=== PATIENT | female | born 1960 | race Caucasian/White ===

== ENCOUNTER 2018-03-20 14:04 | Inpatient (IN) | payer BC ==
[2018-03-20] MEDS ORDERED: SODIUM CHLORIDE 0.9% 500 ML INFUS.BAG IV ONE ×2 (14:55→19:30)
--- NOTE | 2018-03-20 14:55 | PDOC ---
Rapid Medical Evaluation Chief Complaint: Pain Time Seen by Provider: 03/20/18 14:53 Medical Evaluation: Allergies Allergy/AdvReac Type Severity Reaction Status Date / Time No Known Allergies Allergy Unverified 10/09/12 11:51 Vital Signs Temp Pulse Resp BP Pulse Ox 99.4 F 58 L 20 1470/80 H 100 03/20/18 14:50 03/20/18 14:50 03/20/18 14:50 03/20/18 14:50 03/20/18 14:50 03/20/18 14:53 I have performed a brief in-person evaluation of this patient. The patient presents with a chief complaint of: not feeling well. Reports nausea and vomiting sent by pmd for further evaluation of norovirus Pertinent physical exam findings: NAD even and unlabored breathing mid generalize abdominal tenderness I have ordered the following: labs, iv fluids The patient will proceed to the ED for further evaluation.
[2018-03-20] MEDS ORDERED: ONDANSETRON 4 MG/2 ML VIAL IVPB ONE (14:56)
[2018-03-20 15:21] LABS: BASO % 0.4 % (0-2.0); EOS % 0.1 % (0-4.5); HEMATOCRIT 41.9 % (32.4-45.2); HEMOGLOBIN 14.6 GM/dL (10.7-15.3); LYMPH % 17.7 % (8-40); MCH 30.5 pg (25.7-33.7); MCHC 34.9 g/dl (32.0-36.0); MEAN CELL VOLUME 87.5 fl (80-96); MEAN PLT VOLUME 8.9 fl (7.5-11.1); MONO % 6.2 % (3.8-10.2); NEUT % 75.6 % (42.8-82.8); PLATELET COUNT 185 K/MM3 (134-434); RBC 4.78 M/mm3 (3.60-5.2); RDW 12.8 % (11.6-15.6); WHITE BLOOD COUNT 4.4 K/mm3 (4.0-10.0)
[2018-03-20 16:07] LABS: ALBUMIN 4.3 g/dl (3.4-5.0); ALK PHOS 76 U/L (45-117); ANION GAP 8 MMOL/L (8-16); BILIRUBIN,TOTAL 0.5 mg/dL (0.2-1); BLOOD UREA NITROGEN 18 mg/dL (7-18); CALCIUM 9.7 mg/dL (8.5-10.1); CHLORIDE 107 mmol/L (98-107); CO2 26 mmol/L (21-32); CREATININE 1.1 mg/dL (0.55-1.3); GLUCOSE,RANDOM 113 mg/dL (74-106); POTASSIUM 4.1 mmol/L (3.5-5.1); SGOT/AST 25 U/L (15-37); SGPT/ALT 28 U/L (13-61); SODIUM 142 mmol/L (136-145); TOT PROT 7.8 g/dl (6.4-8.2)
[2018-03-20] MEDS ORDERED: ONDANSETRON 4 MG/2 ML VIAL ONE (17:25)
[2018-03-20 17:51] LABS: MAGNESIUM 2.2 mg/dL (1.8-2.4)
--- NOTE | 2018-03-20 18:14 | PDOC ---
Attending Attestation - HPI HPI: 03/20/18 19:13 The patient is a 58 year old female, with no significant past medical history, who presents to the emergency department with, fever, nausea, vomiting, and diffuse abdominal pain. Allergies: NKDA - Physicial Exam PE: 03/20/18 19:28 +GENERAL: Uncomfortably, ill appearing. No apparent distress. HEENT: Normocephalic, atraumatic. PERRL, EOM intact. CARDIOVASCULAR: Tachycardic. Normal S1, S2. Regular rhythm. PULMONARY: Clear to auscultation bilaterally. +ABDOMEN: LLQ and L groin tender to palpation. No CVA tenderness. Soft, non-distended. Positive bowel sounds. EXTREMITIES: Normal ROM in all four extremities. No gross deformities. SKIN: Warm, dry. No rash NEUROLOGICAL: No focal neurological deficits. <Francis Vega - Last Filed: 03/20/18 19:28> - Resident Resident Name: Albina Casiano - ED Attending Attestation I have performed the following: I have examined & evaluated the patient, The case was reviewed & discussed with the resident, I agree w/resident's findings & plan, Exceptions are as noted - Medical Decision Making 03/20/18 19:35 58-year-old female whose been sick since last evening. The left lower quadrant pain radiating down to her groin PSH hysterectomy her main c/o LLq abd pain,chills oral kcpc=[id number] scan pending 03/21/18 00:23 ct scan reveals SBO and pt admitted to med/surg Dr Rivera surgical consult <Susana Skelton - Last Filed: 03/21/18 00:27> Attestations - Attestations 03/20/18 19:14 Documentation prepared by Francis Vega, acting as medical social worker for Susana Skelton MD. <Francis Vega - Last Filed: 03/20/18 19:28>
--- NOTE | 2018-03-20 18:23 | PDOC ---
History of Present Illness - General Chief Complaint: Pain Stated Complaint: DEHYDRATION/ VOMITIG/ WEAKNESS Time Seen by Provider: 03/20/18 14:53 - History of Present Illness Initial Comments: Dania Irwin is a 58yo woman with no relevant medical history who presents from her PMD's office with vomiting and abdominal pain. She reports that the abdominal pain started around 9pm last night in the LLQ v left groin. She had no associated urinary symptoms, constipation, diarrhea, or fever/chills at that time. She did have one episode of vomiting last night. She was seen at the [place] [facility] overnight due to worsening pain, up to 11/23, and was told she had "non-infectious gastroenteritis." She states that she had labs and an ultrasound , and she was told to follow up with her PMD. She was at her primary's office this afternoon and had some witnessed vomiting, so she was sent to the ED for evaluation. Ms Irwin states that the pain has spread to her entire abdomen, worst in the LLQ vs left groin. She has had no appetite and a few episodes of vomiting, which she states is clear fluid, no bile or blood. She generally has a BM daily and did not have one today, but she has not eaten since yesterday. She has not noticed any urinary frequency, hematuria, or dysuria. She denies fevers, chills , upper abdominal or chest pain, no respiratory symptoms, sick contacts, recent travel, or change in diet. Past History - Past Medical History Allergies/Adverse Reactions: Allergies Allergy/AdvReac Type Severity Reaction Status Date / Time No Known Allergies Allergy Unverified 10/09/12 11:51 - Suicide/Smoking/Psychosocial Hx Smoking History: Never smoked Have you smoked in the past 12 months: No Information on smoking cessation initiated: No Hx Alcohol Use: No Drug/Substance Use Hx: No Review of Systems - Review of Systems Comments:: General: No fevers, no chills, no weight or appetite change, no malaise HEENT: No changes in vision, no changes in hearing, no congestion, no sore throat CV: No chest pain, no palpitations, no LE edema Pulm: No SOB, no cough, no wheezing GI: +nausea, vomiting, abd pain. No change in bowel habits. : No frequency, no urgency, no dysuria Musc: No back pain, no joint swelling, no recent injury Skin: No rash, no lesions, no erythema Endo: No excessive thirst, no heat/cold intolerance Heme: No unusual bruising or bleeding, no swollen glands Neuro: No syncope, no numbness/tingling, no focal weakness Vasc: No claudication Psych: No recent change in mood, no SI or HI *Physical Exam - Vital Signs Last Vital Signs Temp Pulse Resp BP Pulse Ox 99.4 F 58 L 20 1470/80 H 100 03/20/18 14:50 03/20/18 14:50 03/20/18 14:50 03/20/18 14:50 03/20/18 14:50 - Physical Exam Comments: General: Appears ill, uncomfortable but in no acute distress HEENT: PERRL, EOMI, MMM, voice normal, normal neck ROM, no LAD Cards: RRR, no murmur appreciated Pulm: Comfortable on room air, clear to auscultation bilaterally Abd: Soft, nondistended. Diffuse mild TTP, most in LLQ and suprapubic. No rigidity, no involuntary guarding. : No CVA tenderness Ext: Atraumatic. No LE edema. ROM intact. Strength 5/5 and equal bilaterally Vasc: Extremities WWP. Skin: Normal color, no rashes or lesions Neuro: A&Ox3, CN grossly intact, normal speech, motor/sensory grossly intact and symmetric Psych: Mood appropriate to situation Moderate Sedation - Procedure Monitoring Vital Signs: Procedure Monitoring Vital Signs Temperature 99.4 F 03/20/18 14:50 Pulse Rate 58 L 03/20/18 14:50 Respiratory Rate 20 03/20/18 14:50 Blood Pressure 1470/80 H 03/20/18 14:50 O2 Sat by Pulse Oximetry (%) 100 03/20/18 14:50 ED Treatment Course - LABORATORY CBC & Chemistry Diagram: 03/20/18 15:06 03/20/18 15:06 - ADDITIONAL ORDERS Additional order review: Laboratory Results 03/20/18 15:06 Sodium 142 Potassium 4.1 Chloride 107 Carbon Dioxide 26 Anion Gap 8 BUN 18 Creatinine 1.1 Creat Clearance w eGFR 51.38 Random Glucose 113 H Calcium 9.7 Magnesium 2.2 Total Bilirubin 0.5 AST 25 ALT 28 Alkaline Phosphatase 76 Total Protein 7.8 Albumin 4.3 03/20/18 15:06 RBC 4.78 MCV 87.5 MCHC 34.9 RDW 12.8 MPV 8.9 Neutrophils % 75.6 Lymphocytes % 17.7 Monocytes % 6.2 Eosinophils % 0.1 Basophils % 0.4 - Medications Given in the ED: ED Medications Discontinued Medications Generic Name Dose Route Start Last Admin Trade Name Mario PRN Reason Stop Dose Admin Ondansetron HCl 8 mg 03/20/18 14:56 03/20/18 17:54 Zofran Injection IVPB 03/20/18 14:57 8 mg ONCE ONE Administration Sodium Chloride 1,000 ml 03/20/18 14:55 03/20/18 17:53 Normal Saline - IV 03/20/18 14:56 1,000 ml ONCE ONE Administration Medical Decision Making - Medical Decision Making 03/20/18 18:04 Dania Irwin is a 58yo woman with no relevant medical history who presents with LLQ pain since last night that has worsened to become diffuse, 10/10 abdominal pain with associated nausea and vomiting. - Seen in E, CBC and chemistry completed. Reviewed. No abnormalities noted - Received 1L NS bolus and 8mg IV zofran with some improvement in symptoms - Ddx includes gastritis, diverticulitis, influenza. Less likely enteritis w/ no diarrhea. No h/o diverticulosis per pt on colonoscopy 2013. Consider kidney stone or UTI as LLQ pain is nearly at L groin 03/20/18 18:56 - Temperature rechecked by Dr Skelton. Was 100.1 orally, likely to have true fever if checked rectally - Influenza ordered, UA, urine culture - Acetaminophen for pain, elevated temp - Additional 1L NS bolus 03/20/18 22:45 - Labs notable for WBC 15 - Pt to CT. Noted to have contrast in the bladder already. Discussed with Pt, endorses previous CT while at [facility] overnight. Previously stated that she had an ultrasound during her previous ED visit. - Will need 3rd 1L IVF. Note ketones on UA suggesting dehydration - Need to obs to monitor kidney function as she has received 2 doses of IV contrast within 24hrs - Requesting more pain medication, but declines narcotics. Too early to give additional acetaminophen; no toradol given GFR 51 and IV contrast. 03/20/18 23:20 - Spoke to MARIE Mariscal, will admit to obs on Dr Burleson's service - EKG and CXR ordered for admission. 03/21/18 00:32 - CT read indicates SOB - Discussed additionally with pt. Had hysterectomy previously - Consult placed with surgery. No call overnight as this is unlikely to change of address clerk - MARIE Mariscal at bedside for admission Discussed with Dr Skelton. Albina Casiaon PGY1 *DC/Admit/Observation/Transfer Diagnosis at time of Disposition: LLQ abdominal pain, Vomiting, SBO (small bowel obstruction) - Discharge Dispostion Decision to Admit order: Yes - Referrals - Patient Instructions - Post Discharge Activity
[2018-03-20] MEDS ORDERED: ACETAMINOPHEN 1000 MG/100 ML VIAL (NON FORMULARY) IVPB ONE (18:27)
[2018-03-20] MEDS ORDERED: ACETAMINOPHEN INJECTION 100 ML IVPB ONE (18:33)
[2018-03-20 22:30] LABS: URINE APPEARANCE CLEAR; URINE BILIRUBIN NEGATIVE (<2.0 mg/dL); URINE COLOR YELLOW; URINE GLUCOSE (UA) NEGATIVE (NEGATIVE); URINE KETONE 1+ (NEGATIVE); URINE LEUK ESTERASE NEGATIVE (NEGATIVE); URINE NITRITE NEGATIVE (NEGATIVE); URINE PROTEIN 1+ (NEGATIVE); URINE UROBILINOGEN NEGATIVE mg/dL (0.2-1.0)
[2018-03-20 22:48] LABS: EPI CELLS RARE /HPF (FEW); URINE MUCUS MODERATE
[2018-03-20] MEDS ORDERED: SODIUM CHLORIDE 1,000 ML IV SCH (23:30)
--- NOTE | 2018-03-20 23:31 | HP ---
CHIEF COMPLAINT: Vomiting and Abdominal Pain PCP: Dr. Russel Lee HISTORY OF PRESENT ILLNESS: This is a 58 y/o woman no PMHx. Who presents to the ED with sharp LLQ pain and non bilious vomiting x 1 day. Patient was seen at [facility] last night for same had CT and US- enteritis, per patient- Dx Gastroenteritis. Patient reports that the abdominal pain increased. She reports her last BM Tuesday. Patient denies fever, chills, cough, SOB, CP, diarrhea, dysuria. ER course was notable for: (1) T Max 100.1 (2) UA- +1 Ketones, +1 Protein (3) CTAP- mild to moderate small bowel dilatation with obstruction. Small amount free fluid within the cul-de-sac Recent Travel: None PAST MEDICAL HISTORY: None PAST SURGICAL HISTORY: Hysterectomy Social History: Smoking: Denies Alcohol: Denies Drugs: Denies Family History: Hypertension and Stroke Allergies No Known Allergies Allergy (Unverified 10/09/12 11:51) HOME MEDICATIONS: REVIEW OF SYSTEMS CONSTITUTIONAL: Absent: fever, chills, diaphoresis, generalized weakness, malaise, loss of appetite, weight change HEENT: Absent: rhinorrhea, nasal congestion, throat pain, throat swelling, difficulty swallowing, mouth swelling, ear pain, eye pain, visual changes CARDIOVASCULAR: Absent: chest pain, syncope, palpitations, irregular heart rate, lightheadedness , peripheral edema RESPIRATORY: Absent: cough, shortness of breath, dyspnea with exertion, orthopnea, wheezing, stridor, hemoptysis GASTROINTESTINAL: abdominal pain, nausea, vomiting Absent: abdominal distension, diarrhea, constipation, melena, hematochezia GENITOURINARY: Absent: dysuria, frequency, urgency, hesitancy, hematuria, flank pain, genital pain MUSCULOSKELETAL: Absent: myalgia, arthralgia, joint swelling, back pain, neck pain SKIN: Absent: rash, itching, pallor HEMATOLOGIC/IMMUNOLOGIC: Absent: easy bleeding, easy bruising, lymphadenopathy, frequent infections ENDOCRINE: Absent: unexplained weight gain, unexplained weight loss, heat intolerance, cold intolerance NEUROLOGIC: Absent: headache, focal weakness or paresthesias, dizziness, unsteady gait, seizure, mental status changes, bladder or bowel incontinence PSYCHIATRIC: Absent: anxiety, depression, suicidal or homicidal ideation, hallucinations. PHYSICAL EXAMINATION Vital Signs - 24 hr 03/20/18 14:50 Temperature 99.4 F Pulse Rate 58 L Respiratory 20 Rate Blood Pressure 147/80 O2 Sat by Pulse 100 Oximetry (%) GENERAL: Awake, alert, and fully oriented, in moderate distress. HEAD: Normal with no signs of trauma. EYES: Pupils equal, round and reactive to light, extraocular movements intact, sclera anicteric, conjunctiva clear. No lid lag. EARS, NOSE, THROAT: Ears normal, nares patent, oropharynx clear without exudates. Dry mucous membranes. NECK: Normal range of motion, supple without lymphadenopathy, JVD, or masses. LUNGS: Breath sounds equal, clear to auscultation bilaterally. No wheezes, and no crackles. No accessory muscle use. HEART: Regular rate and rhythm, normal S1 and S2 without murmur, rub or gallop. ABDOMEN: Soft, distention, LLQ tenderness, hyperactive bowel sounds,+ guarding. No rebound, no masses. No hepatomegaly or splenomegaly. MUSCULOSKELETAL: Normal range of motion at all joints. No bony deformities or tenderness. No CVA tenderness. UPPER EXTREMITIES: 2+ pulses, warm, well-perfused. No cyanosis. No clubbing. No peripheral edema. LOWER EXTREMITIES: 2+ pulses, warm, well-perfused. No calf tenderness. No peripheral edema. NEUROLOGICAL: Cranial nerves II-XII intact. Normal speech. Gait not observed. PSYCHIATRIC: Cooperative. Good eye contact. Appropriate mood and affect. SKIN: Warm, dry, normal turgor, no rashes or lesions noted, normal capillary refill. Laboratory Results - last 24 hr 03/20/18 03/20/18 03/20/18 15:06 15:06 18:43 WBC 4.4 RBC 4.78 Hgb 14.6 Hct 41.9 MCV 87.5 MCH 30.5 MCHC 34.9 RDW 12.8 Plt Count 185 MPV 8.9 Absolute Neuts (auto) 3.3 Neutrophils % 75.6 Lymphocytes % 17.7 Monocytes % 6.2 Eosinophils % 0.1 Basophils % 0.4 Nucleated RBC % 0 Sodium 142 Potassium 4.1 Chloride 107 Carbon Dioxide 26 Anion Gap 8 BUN 18 Creatinine 1.1 Creat Clearance w eGFR 51.38 Random Glucose 113 H Calcium 9.7 Magnesium 2.2 Total Bilirubin 0.5 AST 25 ALT 28 Alkaline Phosphatase 76 Total Protein 7.8 Albumin 4.3 Urine Color Urine Appearance Urine pH Ur Specific [place] Urine Protein Urine Glucose (UA) Urine Ketones Urine Blood Urine Nitrite Urine Bilirubin Urine Urobilinogen Ur Leukocyte Esterase Urine WBC (Auto) Urine RBC (Auto) Ur Epithelial Cells Urine Mucus Influenza A (Rapid) Negative Influenza B (Rapid) Negative 03/20/18 19:08 WBC RBC Hgb Hct MCV MCH MCHC RDW Plt Count MPV Absolute Neuts (auto) Neutrophils % Lymphocytes % Monocytes % Eosinophils % Basophils % Nucleated RBC % Sodium Potassium Chloride Carbon Dioxide Anion Gap BUN Creatinine Creat Clearance w eGFR Random Glucose Calcium Magnesium Total Bilirubin AST ALT Alkaline Phosphatase Total Protein Albumin Urine Color Yellow Urine Appearance Clear Urine pH 5.0 Ur Specific [place] 1.041 H Urine Protein 1+ H Urine Glucose (UA) Negative Urine Ketones 1+ H Urine Blood Negative Urine Nitrite Negative Urine Bilirubin Negative Urine Urobilinogen Negative Ur Leukocyte Esterase Negative Urine WBC (Auto) 1 Urine RBC (Auto) 3 Ur Epithelial Cells Rare Urine Mucus Moderate Influenza A (Rapid) Influenza B (Rapid) ASSESSMENT/PLAN: This is a 58 y/o woman no PMHx. Admitted for SBO for further evaluation of their emergent condition. Plan: See Problem List FEN NS@125ml/hr Replete lytes prn NPO DVT ppx OOB SCDs Lovenox SQ Code Status: Full Code Dispo: Requires Inpatient Care Problem List - Problem (1) SBO (small bowel obstruction) Assessment/Plan: CTAP report- mild to moderate small bowel dilatation consistent with obstruction Appreciate Surgical consult NPO NGT IVF Morphine Sulfate prn Monitor CBC, BMP Monitor vitals Code(s): K56.609 - UNSP INTESTNL OBST, UNSP TO PARTIAL VERSUS COMPLETE OBST (2) Abdominal pain Assessment/Plan: See above Code(s): R10.9 - UNSPECIFIED ABDOMINAL PAIN (3) Vomiting Assessment/Plan: Likely secondary to SBO Zofran prn IVF Monitor lytes Code(s): R11.10 - VOMITING, UNSPECIFIED Visit type - Emergency Visit Emergency Visit: Yes ED Registration Date: 03/20/18 Care time: The patient presented to the Emergency Department on the above date and was hospitalized for further evaluation of their emergent condition. - New Patient This patient is new to me today: Yes Date on this admission: 03/20/18 - Critical Care Critical Care patient: No
[2018-03-21] MEDS ORDERED: ONDANSETRON 4 MG/2 ML VIAL ONE (00:01)
[2018-03-21] MEDS: ONDANSETRON 4 MG/2 ML VIAL IVPUSH PRN ×3 (00:14→16:09)
[2018-03-21] MEDS ORDERED: SODIUM CHLORIDE 0.9% 500 ML INFUS.BAG IV ONE (00:35)
[2018-03-21] MEDS ORDERED: morphine CARPU-JECT 4 MG/1 ML DISP.SYRIN IVPUSH PRN (00:43)
[2018-03-21] MEDS ORDERED: MORPHINE SULFATE 10 MG/1 ML *VIAL ONE (01:48)
[2018-03-21] MEDS: DEXTROSE 5%-0.45% SALINE 1,000 ML IV SCH ×2 (01:55→03:42)
[2018-03-21 08:19] LABS: BASO % 0.2 % (0-2.0); HEMATOCRIT 36.4 % (32.4-45.2); HEMOGLOBIN 12.9 GM/dL (10.7-15.3); LYMPH % 15.7 % (8-40); MCH 31.1 pg (25.7-33.7); MCHC 35.4 g/dl (32.0-36.0); MEAN CELL VOLUME 87.8 fl (80-96); MEAN PLT VOLUME 9.3 fl (7.5-11.1); MONO % 8.8 % (3.8-10.2); NEUT % 75.3 % (42.8-82.8); PLATELET COUNT 140 K/MM3 (134-434); RBC 4.15 M/mm3 (3.60-5.2); WHITE BLOOD COUNT 6.1 K/mm3 (4.0-10.0)
[2018-03-21 08:52] LABS: ANION GAP 7 MMOL/L (8-16); BLOOD UREA NITROGEN 16 mg/dL (7-18); CALCIUM 8.7 mg/dL (8.5-10.1); CHLORIDE 110 mmol/L (98-107); CO2 24 mmol/L (21-32); GLUCOSE,RANDOM 135 mg/dL (74-106); POTASSIUM 3.6 mmol/L (3.5-5.1); SODIUM 141 mmol/L (136-145)
--- NOTE | 2018-03-21 10:48 | CONSULT ---
- Consultation REQUESTING PROVIDER: CONSULT REQUEST: We have been asked to surgically evaluate this patient for abdominal pain r/o SBO. PCP:Nory Burleson HISTORY OF PRESENT ILLNESS: 58yo woman with no relevant medical history who presents from her PMD's office with clear non-bilious vomiting and abdominal pain x1 day. She reports that the abdominal pain started around 9pm on Tuesday night in the LLQ and left groin. She had no associated urinary symptoms, constipation, diarrhea, or fever/chills at that time. She was seen at the [place] ED Tuesday night overnight due to worsening pain, up to 11/23 where the patient reports she had a work up including labs and an abdominal CT was diagnosed with "non-infectious gastroenteritis." She was discharged home Tuesday morning then later presented to her PCP's office for follow up and was later sent to the ED. She denies fevers, chills, upper abdominal or chest pain, no respiratory symptoms, sick contacts, recent travel, or change in diet. Past History denies Allergies/Adverse Reactions: Home Medications Medication Instructions Recorded NK [No Known Home Medication] 03/21/18 Allergies Allergy/AdvReac Type Severity Reaction Status Date / Time No Known Allergies Allergy Unverified 10/09/12 11:51 - Suicide/Smoking/Psychosocial Hx Smoking History: Never smoked Have you smoked in the past 12 months: No Information on smoking cessation initiated: No Hx Alcohol Use: No Drug/Substance Use Hx: No - Review of Systems Comments:: General: No fevers, no chills, no weight, no malaise HEENT: No changes in vision, no changes in hearing, no congestion, no sore throat CV: No chest pain, no palpitations, no LE edema Pulm: No SOB, no cough, no wheezing GI: +nausea, vomiting, +abd pain. No change in bowel habits. : No frequency, no urgency, no dysuria Musc: No back pain, no joint swelling, no recent injury Skin: No rash, no lesions, no erythema Endo: No excessive thirst, no heat/cold intolerance Heme: No unusual bruising or bleeding, no swollen glands Neuro: No syncope, no numbness/tingling, no focal weakness Vasc: No claudication Psych: No recent change in mood, no SI or HI - Physical Exam Comments: General: A&Ox3, NAD HEENT: voice normal, normal neck ROM, no LAD Pulm: unlabored resp on room air, Abd: Soft, nondistended. Focal ttp at LLQ and suprapubic area. No rigidity, no involuntary guarding. Ext: Atraumatic. No LE edema. ROM intact. Strength 5/5 and equal bilaterally Vasc: Extremities WWP. Skin: Normal color, no rashes or lesions Neuro: A&Ox3, CN grossly intact, normal speech, motor/sensory grossly intact and symmetric Psych: Mood appropriate to situation Vital Signs Temperature 98.7 F 03/21/18 03:51 Pulse Rate 53 L 03/21/18 03:51 Respiratory Rate 18 03/21/18 03:51 Blood Pressure 133/59 L 03/21/18 03:51 O2 Sat by Pulse Oximetry (%) 98 03/21/18 03:30 Lab Results WBC 6.1 K/mm3 (4.0-10.0) 03/21/18 07:00 RBC 4.15 M/mm3 (3.60-5.2) 03/21/18 07:00 Hgb 12.9 GM/dL (10.7-15.3) 03/21/18 07:00 Hct 36.4 % (32.4-45.2) 03/21/18 07:00 MCV 87.8 fl (80-96) 03/21/18 07:00 MCHC 35.4 g/dl (32.0-36.0) 03/21/18 07:00 RDW 13.0 % (11.6-15.6) 03/21/18 07:00 Plt Count 140 K/MM3 (134-434) D 03/21/18 07:00 Sodium 141 mmol/L (136-145) 03/21/18 07:00 Potassium 3.6 mmol/L (3.5-5.1) 03/21/18 07:00 Chloride 110 mmol/L (98-107) H 03/21/18 07:00 Carbon Dioxide 24 mmol/L (21-32) 03/21/18 07:00 Anion Gap 7 MMOL/L (8-16) L 03/21/18 07:00 BUN 16 mg/dL (7-18) 03/21/18 07:00 Creatinine 1.0 mg/dL (0.55-1.3) 03/21/18 07:00 Random Glucose 135 mg/dL (74-106) H 03/21/18 07:00 Calcium 8.7 mg/dL (8.5-10.1) 03/21/18 07:00 Abd/Chest CT with contrast revealed mild to moderate bowel dilation consistent with obstruction upright Abd x-ray: areas of dilated small bowel Problem List - Problems (1) Abdominal pain Assessment/Plan: 58yo with abdominal pain and vomiting question of SBO 1) Abdominal CT with oral contrast 2) NPO 3) trend labs 4) pain control 5) NGT PRN if lots of vomiting 6) surgery to follow Evaluation and plan discussed with Dr Rivera Code(s): R10.9 - UNSPECIFIED ABDOMINAL PAIN
--- NOTE | 2018-03-21 12:41 | PN ---
Progress Note (short form) - Note Progress Note: Events noted Feels bloated no nausea Vomited this morning no further vomiting Vital Signs - 24 hr 03/20/18 03/21/18 03/21/18 14:50 01:59 03:30 Temperature 99.4 F 98.9 F 98.7 F Pulse Rate 58 L 53 L Pulse Rate [ 59 L Left Radial] Respiratory 20 18 18 Rate Blood Pressure 147/80 133/59 L Blood Pressure 138/79 [Left Arm] O2 Sat by Pulse 100 98 98 Oximetry (%) 03/21/18 03/21/18 03:51 09:00 Temperature 98.7 F 98.0 F Pulse Rate 53 L 59 L Pulse Rate [ Left Radial] Respiratory 18 20 Rate Blood Pressure 133/59 L 143/82 Blood Pressure [Left Arm] O2 Sat by Pulse 100 Oximetry (%) Current Medications Generic Name Dose Route Start Last Admin Trade Name Freq PRN Reason Stop Dose Admin Dextrose/Sodium Chloride 1,000 mls @ 100 mls/hr 03/21/18 00:45 03/21/18 03:42 D5-1/2ns - IV 100 mls/hr ASDIR GWEN Administration Morphine Sulfate 4 mg 03/21/18 02:41 Morphine Sulfate IVPUSH Q6H PRN PAIN LEVEL 7 - 10 Ondansetron HCl 4 mg 03/20/18 23:31 03/21/18 05:55 Zofran Injection IVPUSH 4 mg Q6H PRN Administration NAUSEA AND/OR VOMITING Laboratory Results - last 24 hr 03/20/18 03/20/18 03/20/18 15:06 15:06 18:43 WBC 4.4 RBC 4.78 Hgb 14.6 Hct 41.9 MCV 87.5 MCH 30.5 MCHC 34.9 RDW 12.8 Plt Count 185 MPV 8.9 Absolute Neuts (auto) 3.3 Neutrophils % 75.6 Lymphocytes % 17.7 Monocytes % 6.2 Eosinophils % 0.1 Basophils % 0.4 Nucleated RBC % 0 Sodium 142 Potassium 4.1 Chloride 107 Carbon Dioxide 26 Anion Gap 8 BUN 18 Creatinine 1.1 Creat Clearance w eGFR 51.38 Random Glucose 113 H Calcium 9.7 Magnesium 2.2 Total Bilirubin 0.5 AST 25 ALT 28 Alkaline Phosphatase 76 Total Protein 7.8 Albumin 4.3 Urine Color Urine Appearance Urine pH Ur Specific [place] Urine Protein Urine Glucose (UA) Urine Ketones Urine Blood Urine Nitrite Urine Bilirubin Urine Urobilinogen Ur Leukocyte Esterase Urine WBC (Auto) Urine RBC (Auto) Ur Epithelial Cells Urine Mucus Influenza A (Rapid) Negative Influenza B (Rapid) Negative 03/20/18 03/21/18 03/21/18 19:08 07:00 07:00 WBC 6.1 RBC 4.15 Hgb 12.9 Hct 36.4 MCV 87.8 MCH 31.1 MCHC 35.4 RDW 13.0 Plt Count 140 D MPV 9.3 Absolute Neuts (auto) 4.6 Neutrophils % 75.3 Lymphocytes % 15.7 Monocytes % 8.8 Eosinophils % 0.0 D Basophils % 0.2 Nucleated RBC % 0 Sodium 141 Potassium 3.6 Chloride 110 H Carbon Dioxide 24 Anion Gap 7 L BUN 16 Creatinine 1.0 Creat Clearance w eGFR 57.35 Random Glucose 135 H Calcium 8.7 Magnesium Total Bilirubin AST ALT Alkaline Phosphatase Total Protein Albumin Urine Color Yellow Urine Appearance Clear Urine pH 5.0 Ur Specific [place] 1.041 H Urine Protein 1+ H Urine Glucose (UA) Negative Urine Ketones 1+ H Urine Blood Negative Urine Nitrite Negative Urine Bilirubin Negative Urine Urobilinogen Negative Ur Leukocyte Esterase Negative Urine WBC (Auto) 1 Urine RBC (Auto) 3 Ur Epithelial Cells Rare Urine Mucus Moderate Influenza A (Rapid) Influenza B (Rapid) S1S2 RRR Lungs clear Oral - moist Abd-- soft, distended, BS hyperactive, tender LLQ No edema PLAN NPO xray noted still SBO no vomiting pain control as needed surgical eval appreciated iv fluids DVT prophylaxis Problem List - Problems (1) Abdominal pain Code(s): R10.9 - UNSPECIFIED ABDOMINAL PAIN (2) LLQ abdominal pain Code(s): R10.32 - LEFT LOWER QUADRANT PAIN (3) SBO (small bowel obstruction) Code(s): K56.609 - UNSP INTESTNL OBST, UNSP TO PARTIAL VERSUS COMPLETE OBST
--- NOTE | 2018-03-21 15:06 | EKG ---
Test Reason : Blood Pressure : / mmHG Vent. Rate : 051 BPM Atrial Rate : 051 BPM P-R Int : 184 ms QRS Dur : 078 ms QT Int : 444 ms P-R-T Axes : 058 083 061 degrees QTc Int : 409 ms SINUS BRADYCARDIA WITH MARKED SINUS ARRHYTHMIA SEPTAL INFARCT , AGE UNDETERMINED T WAVE ABNORMALITY, CONSIDER ANTERIOR ISCHEMIA ABNORMAL ECG NO PREVIOUS ECGS AVAILABLE Confirmed by Mateo Malik MD ([id number]) on 03/21/2018 3:05:25 PM Referred By: Confirmed By:Mateo Malik MD
[2018-03-21] MEDS: morphine SULFATE 4 MG/ML VIAL IVPUSH PRN ×2 (16:08→22:21)
[2018-03-22] MEDS: DEXTROSE 5%-0.45% SALINE 1,000 ML IV SCH ×2 (05:22→16:05)
[2018-03-22] MEDS: morphine SULFATE 4 MG/ML VIAL IVPUSH PRN ×2 (05:22→21:43)
--- NOTE | 2018-03-22 09:18 | PN ---
Progress Note (short form) - Note Progress Note: Attending Surgeon She had nausea and vomiting overnight; no flatus/no BM VSS AF abdo-soft; not markedly tympanitic; non tender CTa/p yesterday reviwed yesterday IMP: partial ? worsening ? sbo PLAN: Obstructive series today and would recommend NGT if she continues to vomit and/or pending results of todays imaging; continue IVF/NPO; d/w the patient who understands. Adrian Rivera MD FACS
[2018-03-22] MEDS: PANTOPRAZOLE SODIUM 40 MG VIAL IVPUSH SCH (10:33)
[2018-03-22] MEDS: ENOXAPARIN NA (PORCINE) 40 MG/0.4 ML DISP.SYRIN SQ SCH (10:33)
--- NOTE | 2018-03-22 12:16 | PN ---
Progress Note (short form) - Note Progress Note: no vomiting no nausea Vital Signs - 24 hr 03/21/18 03/21/18 03/21/18 15:21 18:57 21:00 Temperature 98.8 F 99.4 F Pulse Rate 62 60 Respiratory 18 20 20 Rate Blood Pressure 149/74 150/71 O2 Sat by Pulse 98 Oximetry (%) 03/21/18 03/22/18 03/22/18 22:00 06:00 10:25 Temperature 98.8 F 98.5 F Pulse Rate 58 L 60 54 L Respiratory 20 20 17 Rate Blood Pressure 148/83 129/82 129/72 O2 Sat by Pulse Oximetry (%) Current Medications Generic Name Dose Route Start Last Admin Trade Name Freq PRN Reason Stop Dose Admin Acetaminophen 1,000 mg 03/22/18 12:06 Ofirmev Injection - IVPB Q6H PRN PAIN 1-3 Enoxaparin Sodium 40 mg 03/22/18 10:00 03/22/18 10:33 Lovenox - SQ Not Given DAILY GWEN Dextrose/Sodium Chloride 1,000 mls @ 100 mls/hr 03/21/18 00:45 03/22/18 05:22 D5-1/2ns - IV 100 mls/hr ASDIR GWEN Administration Morphine Sulfate 4 mg 03/21/18 02:41 03/22/18 05:22 Morphine Sulfate IVPUSH 4 mg Q6H PRN Administration PAIN LEVEL 7 - 10 Ondansetron HCl 4 mg 03/20/18 23:31 03/21/18 16:09 Zofran Injection IVPUSH 4 mg Q6H PRN Administration NAUSEA AND/OR VOMITING Pantoprazole Sodium 40 mg 03/22/18 10:00 03/22/18 10:33 Protonix Iv IVPUSH 40 mg DAILY GWEN Administration S1 S2 RRR Lungs clear Oral - moist Abd-- soft, distended, BS hyperactive, decreased tender LLQ No edema PLAN NPO xray noted still SBO no vomiting pain control as needed surgical eval appreciated iv fluids DVT prophylaxis tylenol iv as needed as morphine is making her too drowsy GI eval Problem List - Problems (1) Abdominal pain Code(s): R10.9 - UNSPECIFIED ABDOMINAL PAIN (2) LLQ abdominal pain Code(s): R10.32 - LEFT LOWER QUADRANT PAIN (3) SBO (small bowel obstruction) Code(s): K56.609 - UNSP INTESTNL OBST, UNSP TO PARTIAL VERSUS COMPLETE OBST
[2018-03-22] MEDS: ACETAMINOPHEN 1000 MG/100 ML VIAL (NON FORMULARY) IVPB PRN (16:05)
--- NOTE | 2018-03-22 17:09 | PROC ---
Procedure Note Procedure: Abdo xrays reviewed with attending, unchanged from CT scan done yesterday. Pt w / vomiting this AM. Continued abdominal distention. NGTube placed this afternoon. Approx 500ml greenish drainage upon placement of tube. Air auscultated over the epigastric, +gurgling sounds with air instillation. ABdo xray ordered for AM. procedure done with Chief PA, David Velazquez
[2018-03-22] MEDS ORDERED: TETRACAINE/BENZOCAINE/BUTAMBEN 20 GM SPR TP SCH (20:00)
--- NOTE | 2018-03-22 23:02 | CONS ---
DATE OF CONSULTATION: 03/22/2018 HISTORY OF PRESENT ILLNESS: Patient is a 58-year-old female with no past medical history who was seen at [facility] the night prior to admission to [facility] [place]; at the time, had a CT and ultrasound, which revealed enteritis. Patient was discharged with the diagnosis of gastroenteritis. She now presents to the hospital with complaints of left lower quadrant abdominal pain and vomiting. Her abdominal pain increased during the course of the day. Her last bowel movement was over the weekend. She denies any hematemesis, melena, hematochezia, previous episodes of obstructive process or similar symptoms. She has not had a recent endoscopic evaluation. PAST MEDICAL AND SURGICAL HISTORY: As listed in the HPI with the addition of a hysterectomy. SOCIAL HISTORY: Does not smoke, drink, or use drugs. FAMILY HISTORY: Significant for cardiac disease and hypertension and stroke. ALLERGIES: No known drug allergies. REVIEW OF SYSTEMS: Negative except for pertinent positives in the HPI. PHYSICAL EXAMINATION: Vital Signs: Temperature 99, pulse 54, blood pressure 124/72, pulse oximetry 98% on room air. General: No acute distress. HEENT: Anicteric sclerae. NG tube in place. Heart: S1, S2. Regular rate and rhythm. Lungs: Bilaterally clear to auscultation. Abdomen: Tender and distended with high pitched bowel sounds. Extremities: No edema. LABORATORY: White blood cell count is 6, hemoglobin 12, hematocrit 36, MCV 87, platelet count 140. Sodium 141, potassium 3.6, BUN 16, creatinine 1, glucose 135. Urine: 1+ protein and 1+ ketones. Influenza is negative. She had a CT scan of the abdomen and pelvis, which revealed worsening SBO since March 20, 2018, development of trace amount of ascites. She had an abdominal x-ray done today, which revealed persistent small bowel obstruction. IMPRESSION: Small bowel obstruction most likely secondary to adhesions. RECOMMENDATION: NG tube, intermittent suction. IV fluids. Monitor CBC and electrolytes daily. Cetacaine spray for comfort. I would recommend Surgery evaluation. Monitor abdominal examination. DVT prophylaxis. DO ELENA MAIER/[id number]
[2018-03-23] MEDS: DEXTROSE 5%-0.45% SALINE 1,000 ML IV SCH (01:59)
[2018-03-23] MEDS: ONDANSETRON 4 MG/2 ML VIAL IVPUSH PRN (04:38)
[2018-03-23] MEDS ORDERED: TETRACAINE/BENZOCAINE/BUTAMBEN 20 GM SPR TP PRN (08:14)
[2018-03-23] MEDS ORDERED: PHENOL 177 ML SPRAY BOTTLE MM PRN (08:17)
--- NOTE | 2018-03-23 08:39 | PN ---
Progress Note (short form) - Note Progress Note: Attempted to see pt this AM (approx 830). Pt in restroom washing up for 20+ mins with NGT disconnected. Upon returning to bed for exam, pt attempted to speak and vomited approx 200ml greenish drainage. NGT reconnected with >200ml suctioned immediately. Will follow up later today d/w attending Dr Rivera
[2018-03-23 09:48] LABS: ALBUMIN 3.8 g/dl (3.4-5.0); ALK PHOS 67 U/L (45-117); ANION GAP 9 MMOL/L (8-16); BILIRUBIN,TOTAL 0.7 mg/dL (0.2-1); BLOOD UREA NITROGEN 22 mg/dL (7-18); CALCIUM 9.6 mg/dL (8.5-10.1); CHLORIDE 102 mmol/L (98-107); CO2 28 mmol/L (21-32); CREATININE 1.1 mg/dL (0.55-1.3); GLUCOSE,RANDOM 146 mg/dL (74-106); MAGNESIUM 2.3 mg/dL (1.8-2.4); POTASSIUM 3.2 mmol/L (3.5-5.1); SGOT/AST 14 U/L (15-37); SGPT/ALT 22 U/L (13-61); SODIUM 139 mmol/L (136-145); TOT PROT 7.5 g/dl (6.4-8.2)
[2018-03-23] MEDS ORDERED: TETRACAINE/BENZOCAINE/BUTAMBEN 20 GM SPR TP SCH (10:00)
[2018-03-23] MEDS: ENOXAPARIN NA (PORCINE) 40 MG/0.4 ML DISP.SYRIN SQ SCH (10:22)
[2018-03-23] MEDS: PANTOPRAZOLE SODIUM 40 MG VIAL IVPUSH SCH (10:22)
[2018-03-23] MEDS: PHENOL 177 ML SPRAY BOTTLE MM PRN ×4 (10:22→23:29)
--- NOTE | 2018-03-23 11:16 | PN ---
GI Progress Note Subjective: 500cc from NGT drained from this shift so far and canister changed overnight Abdominal pain improved - Objective Vital Signs: Vital Signs Temperature 99.2 F 03/23/18 10:00 Pulse Rate 57 L 03/23/18 10:00 Respiratory Rate 20 03/23/18 10:00 Blood Pressure 139/75 03/23/18 10:00 O2 Sat by Pulse Oximetry (%) 98 03/22/18 21:00 Constitutional: Calm Eyes: No: Sclera Icterus Cardiovascular: Yes: Bradycardia Respiratory: Yes: CTA Bilaterally Gastrointestinal Inspection: Yes: Other (Protuberant) ...Auscultate: Yes: Hypoactive Bowel Sounds ...Palpate: Yes: Soft. No: Tenderness ...Percussion: No: Tympanitic Edema: No (No LE edema) Neurological: Yes: Alert Labs: CBC, BMP 03/21/18 07:00 03/23/18 07:50 - ....Imaging X-ray: Image Reviewed (poor film. overpenetrated AXR) Problem List - Problems (1) SBO (small bowel obstruction) Assessment/Plan: Surgery following Poor quality AXR today Continue NGT decompression IV hydration, supportive measures Code(s): K56.609 - UNSP INTESTNL OBST, UNSP TO PARTIAL VERSUS COMPLETE OBST
--- NOTE | 2018-03-23 12:05 | PN ---
Progress Note (short form) - Note Progress Note: has NGT placed bloating is less Vital Signs - 24 hr 03/22/18 03/22/18 03/22/18 14:00 21:00 22:00 Temperature 99.3 F Pulse Rate 54 L 60 Respiratory 18 20 20 Rate Blood Pressure 124/72 150/92 O2 Sat by Pulse 98 Oximetry (%) 03/23/18 03/23/18 06:00 10:00 Temperature 99.1 F 99.2 F Pulse Rate 60 57 L Respiratory 20 20 Rate Blood Pressure 136/79 139/75 O2 Sat by Pulse Oximetry (%) Current Medications Generic Name Dose Route Start Last Admin Trade Name Freq PRN Reason Stop Dose Admin Acetaminophen 1,000 mg 03/22/18 12:06 03/22/18 16:05 Ofirmev Injection - IVPB 1,000 mg Q6H PRN Administration PAIN 1-3 Enoxaparin Sodium 40 mg 03/22/18 10:00 03/23/18 10:22 Lovenox - SQ Not Given DAILY GWEN Potassium Chloride 10 meq in 100 mls @ 100 mls/hr 03/23/18 12:00 Potassium Chloride 10 Meq Premix Ivpb - IVPB 03/23/18 13:59 Q60M GWEN Potassium Chloride 20 meq/ 1,000 mls @ 100 mls/hr 03/23/18 11:35 Dextrose/Sodium Chloride IVPB ASDIR GWEN Morphine Sulfate 4 mg 03/21/18 02:41 03/22/18 21:43 Morphine Sulfate IVPUSH 4 mg Q6H PRN Administration PAIN LEVEL 7 - 10 Ondansetron HCl 4 mg 03/20/18 23:31 03/23/18 04:38 Zofran Injection IVPUSH 4 mg Q6H PRN Administration NAUSEA AND/OR VOMITING Pantoprazole Sodium 40 mg 03/22/18 10:00 03/23/18 10:22 Protonix Iv IVPUSH 40 mg DAILY GWEN Administration Phenol/Menthol 1 spray 03/23/18 08:19 03/23/18 10:22 Chloraseptic - MM 1 spray Q4H PRN Administration SORE THROAT Laboratory Results - last 24 hr 03/23/18 07:50 Sodium 139 Potassium 3.2 L Chloride 102 Carbon Dioxide 28 Anion Gap 9 BUN 22 H Creatinine 1.1 Creat Clearance w eGFR 51.38 Random Glucose 146 H Calcium 9.6 Magnesium 2.3 Total Bilirubin 0.7 AST 14 L ALT 22 Alkaline Phosphatase 67 Total Protein 7.5 Albumin 3.8 TSH 0.65 S1 S2 RRR Lungs clear Oral - moist Abd-- soft, less distended, BS not present , decreased tender LLQ No edema PLAN NPO iv fluids replace potassium still SBO no vomiting pain control as needed GI eval appreciated DVT prophylaxis tylenol iv as needed as morphine is making her too drowsy Problem List - Problems (1) Abdominal pain Code(s): R10.9 - UNSPECIFIED ABDOMINAL PAIN (2) LLQ abdominal pain Code(s): R10.32 - LEFT LOWER QUADRANT PAIN (3) SBO (small bowel obstruction) Code(s): K56.609 - UNSP INTESTNL OBST, UNSP TO PARTIAL VERSUS COMPLETE OBST
[2018-03-23 12:33] VITALS: BMI 24.2
[2018-03-23] MEDS: KCL 10 MEQ IVPB 10 MEQ/100 ML INFUS.BAG IVPB SCH ×2 (12:37→14:02)
[2018-03-23] MEDS: DEXTROSE 5%-0.45% SALINE 990 ML with POTASSIUM CHLORIDE 20 MEQ IVPB SCH (14:03)
[2018-03-23] MEDS: ACETAMINOPHEN 1000 MG/100 ML VIAL (NON FORMULARY) IVPB PRN (20:09)
[2018-03-24] MEDS: DEXTROSE 5%-0.45% SALINE 990 ML with POTASSIUM CHLORIDE 20 MEQ IVPB SCH
[2018-03-24] MEDS ORDERED: SODIUM CHLORIDE 500 ML IV STA (04:06)
--- NOTE | 2018-03-24 04:12 | HOSP ---
Subjective - Review of Symptoms Events since last encounter: Hospitalist Encounter Notified by the RN that the patient requested to speak to the Hospitalist regarding her concerns for dehydration Subjective: Arrived to bedside, patient is awake, alert and oriented. Patient reports only voided 100cc overnight and that her urine was very concentrated. Patient reports dry lips and throat and feelings of generalized weakness. See PE Plan NS bolus 500ml x1 Strict INOs Continue with current regimen General: Yes: Malaise HEENT: Yes: Sore Throat Neurological: Yes: Weakness Physical Examination Vital Signs: Vital Signs Temperature 98.3 F 03/24/18 02:00 Pulse Rate 54 L 03/24/18 02:00 Respiratory Rate 20 03/24/18 02:00 Blood Pressure 126/73 03/24/18 02:00 O2 Sat by Pulse Oximetry (%) 98 03/23/18 21:00 Constitutional: Yes: No Distress, Calm Eyes: Yes: Conjunctiva Clear, PERRL, Other (dry mucousa) HENT: Yes: Atraumatic, Normocephalic, Other (NGT to R- nare) Neck: Yes: WNL, Supple, Trachea Midline Cardiovascular: Yes: WNL, Regular Rate and Rhythm, S1, S2 Respiratory: Yes: WNL, Regular, CTA Bilaterally Gastrointestinal: Yes: Soft, Distention, Hypoactive Bowel Sounds, Tenderness Edema: No Peripheral Pulses WNL: Yes Neurological: Yes: WNL, Alert, Oriented Psychiatric: Yes: WNL, Alert, Oriented Labs: CBC, BMP 03/21/18 07:00 03/23/18 07:50 Intake & Output 03/21/18 03/22/18 03/23/18 03/24/18 23:59 23:59 23:59 23:59 Intake Total 1350 2400 2500 Output Total 700 2400 1000 Balance 1350 1700 100 -1000 Weight 76.748 kg 76.657 kg Last Vital Signs Temp Pulse Resp BP Pulse Ox 98.3 F 54 L 20 126/73 98 03/24/18 02:00 03/24/18 02:00 03/24/18 02:00 03/24/18 02:00 03/23/18 21:00
[2018-03-24] MEDS: PHENOL 177 ML SPRAY BOTTLE MM PRN ×3 (04:13→20:30)
[2018-03-24 08:02] LABS: ALBUMIN 3.6 g/dl (3.4-5.0); ALK PHOS 65 U/L (45-117); ANION GAP 7 MMOL/L (8-16); BILIRUBIN,TOTAL 0.7 mg/dL (0.2-1); BLOOD UREA NITROGEN 24 mg/dL (7-18); CALCIUM 9.2 mg/dL (8.5-10.1); CHLORIDE 101 mmol/L (98-107); CO2 33 mmol/L (21-32); GLUCOSE,RANDOM 126 mg/dL (74-106); SGOT/AST 19 U/L (15-37); SGPT/ALT 24 U/L (13-61); SODIUM 140 mmol/L (136-145); TOT PROT 7.3 g/dl (6.4-8.2)
--- NOTE | 2018-03-24 09:22 | PN ---
Progress Note (short form) - Note Progress Note: Pt seen and examined on AM rounds. States she does not feel well. Reports feeling "weak, hungry and very dehydrated". Voided 1 x overnight, dark urine in bedside commode. Was oob ambulating in the hallway yesterday. Denies cp/sob, n/v /d. Has not passed flatus. Vital Signs Temp 98.9 F 03/24/18 06:00 Pulse 60 03/24/18 06:00 Resp 20 03/24/18 06:00 BP 132/74 03/24/18 06:00 Pulse Ox 98 03/23/18 21:00 Intake & Output 03/23/18 03/24/18 03/24/18 23:59 11:59 23:59 Intake Total 1300 1600 Output Total 1800 1000 Balance -500 600 Weight 169 lb Intake: IV 1100 1600 D5-1/2Ns - 990 ml @ 100 1100 mls/hr IVPB ASDIR GWEN with KCl - 20 Meq Rx#: [id number] Normal Saline - 500 ml @ 500 500 mls/hr IV ASDIR STA Rx#:[id number] saline lock 1100 IVPB 200 Oral 0 Output: Gastric Drainage 1500 1000 Emesis 300 Other: Voiding Method Bedside Commode Bedside Commode # Unmeasured Voids Void 2 1 Bowel Movement No No Height 5 ft 10 in Body Mass Index (BMI) 24.2 CBC, BMP 03/21/18 07:00 03/24/18 06:40 Gen: awake, alert, nad Resp: unlabored on RA Abdo: soft, slightly distended, no ttp, + bowel sounds. No rebound or guarding. NGT in place and to suction, approx 500ml bilious output in reservoir. A/P: 58 y/o F w/ no PMHx, admitted 2/ with sharp LLQ pain and non bilious vomiting x 1 day, found to have SBO. NGT placed 03/22. Output overnight 1000ml no flatus Am xray reviewed with attending, sbo, ?air in colon -Keep NPO in place and to suction, primary team to increase IVF -OOB ambulating every few hours -Serial abdo exams -Monitor VS and I&O -Tentatively on schedule for Tuesday for possible ex-lap, lysis of adhesions, small bowel resection -Will follow d/w attending Dr Rivera
--- NOTE | 2018-03-24 10:41 | PN ---
GI Progress Note Subjective: Patient seen by hospitalist last night: patient given IV bolus Ms. Irwin complains of feeling weak, her throat hurts and that she has urinated once in the last 12 hours Per her nurse, the suction canister was changed around 2-3 AM She denies abdominal pain, but describes "sensitivity" in the mid abdomen AXR yesterday was read as dilated bowel loops No BM or flatus as of yet - Objective Vital Signs: Vital Signs Temperature 98.9 F 03/24/18 06:00 Pulse Rate 60 03/24/18 06:00 Respiratory Rate 20 03/24/18 06:00 Blood Pressure 132/74 03/24/18 06:00 O2 Sat by Pulse Oximetry (%) 98 03/23/18 21:00 Constitutional: Calm Eyes: No: Sclera Icterus Cardiovascular: Yes: Bradycardia, Murmur (2/6 systolic murmur at the LSB) Respiratory: Yes: CTA Bilaterally Gastrointestinal Inspection: Yes: Other (Protuberant) ...Auscultate: Yes: Hypoactive Bowel Sounds Edema: No (No LE edema) Neurological: Yes: Alert Labs: CBC, BMP 03/21/18 07:00 03/24/18 06:40 Problem List - Problems (1) SBO (small bowel obstruction) Assessment/Plan: Continued output from NGT D/W Dr. Burleson: Will increase IV fluids Correct lytes Continue NGT suction Surgical follow-up Code(s): K56.609 - UNSP INTESTNL OBST, UNSP TO PARTIAL VERSUS COMPLETE OBST
[2018-03-24] MEDS: KCL 10 MEQ IVPB 10 MEQ/100 ML INFUS.BAG IVPB SCH ×3 (10:51→16:50)
[2018-03-24] MEDS: PANTOPRAZOLE SODIUM 40 MG VIAL IVPUSH SCH (10:52)
[2018-03-24] MEDS: ENOXAPARIN NA (PORCINE) 40 MG/0.4 ML DISP.SYRIN SQ SCH (10:52)
--- NOTE | 2018-03-24 10:58 | PN ---
Progress Note (short form) - Note Progress Note: pt seen/examined chart reviewed pt awake/ comfortable. All f/u noted Discussed with GI also. Vital Signs Temp 98.9 F 03/24/18 06:00 Pulse 60 03/24/18 06:00 Resp 20 03/24/18 06:00 BP 132/74 03/24/18 06:00 Pulse Ox 98 03/23/18 21:00 Intake & Output 03/23/18 03/23/18 03/24/18 11:59 23:59 11:59 Intake Total 1200 1300 1600 Output Total 600 1800 1000 Balance 600 -500 600 Weight 169 lb Intake: IV 1200 1100 1600 D5-1/2Ns - 1,000 ml @ 100 1200 mls/hr IV ASDIR GWEN Rx#: [id number] D5-1/2Ns - 990 ml @ 100 1100 mls/hr IVPB ASDIR GWEN with KCl - 20 Meq Rx#: [id number] Normal Saline - 500 ml @ 500 500 mls/hr IV ASDIR STA Rx#:[id number] saline lock 1100 IVPB 200 Oral 0 Output: Gastric Drainage 600 1500 1000 Emesis 300 Other: Voiding Method Toilet Bedside Commode # Unmeasured Voids Void 2 2 1 Bowel Movement No No Height 5 ft 10 in Body Mass Index (BMI) 24.2 Active Medications Acetaminophen (Ofirmev Injection -) 1,000 mg IVPB Q6H PRN PRN Reason: PAIN 1-3 Last Admin: 03/23/18 20:09 Dose: 1,000 mg Enoxaparin Sodium (Lovenox -) 40 mg SQ DAILY GWEN Last Admin: 03/24/18 10:52 Dose: Not Given Potassium Chloride (Potassium Chloride 10 Meq Premix Ivpb -) 10 meq in 100 mls @ 100 mls/hr IVPB Q60M GWEN Stop: 03/24/18 11:59 Last Admin: 03/24/18 10:51 Dose: 100 mls/hr Dextrose/Sodium Chloride (Dextrose 5%-Normal Saline+20 Meq Kcl -) 20 meq in 1, 000 mls @ 150 mls/hr IV ASDIR GWEN Ondansetron HCl (Zofran Injection) 4 mg IVPUSH Q6H PRN PRN Reason: NAUSEA AND/OR VOMITING Last Admin: 03/23/18 04:38 Dose: 4 mg Pantoprazole Sodium (Protonix Iv) 40 mg IVPUSH DAILY GWEN Last Admin: 03/24/18 10:52 Dose: 40 mg Phenol/Menthol (Chloraseptic -) 1 spray MM Q4H PRN PRN Reason: SORE THROAT Last Admin: 03/24/18 04:13 Dose: 1 spray CBC, BMP 03/21/18 07:00 03/24/18 06:40 Physical Exam. S1 S2 RRR Lungs clear Oral - moist Abd-- soft, quiet. No edema. ngt + PLAN NPO/ ice chips iv fluids-- Increase rate replace potassium pain control as needed GI eval appreciated DVT prophylaxis surgery to follow monitor lytes serial fua ngt to suction oob - chair will follow discussed with nursing staff also
[2018-03-24] MEDS: D5-NS + 20 MEQ KCL - 20 MEQ/1,000 ML INFUS.BAG IV SCH ×2 (11:00→21:06)
[2018-03-24 12:00] LABS: MAGNESIUM 2.5 mg/dL (1.8-2.4)
--- NOTE | 2018-03-24 18:00 | PN ---
Progress Note (short form) - Note Progress Note: Attending Surgeon Seen in f/u No flatus/no BM abdo-soft; dull and non tympanitic and w/o signs of an acute surgical abdomen Xrays reviewed- ? air in colon IMP: SBO PLAN: Continue present tx; if not resolved by 03/26/18would advise exlap and related procedures; a/a/u by the patient. Adrian Rivera MD FACS
[2018-03-24] MEDS: ACETAMINOPHEN 1000 MG/100 ML VIAL (NON FORMULARY) IVPB PRN (20:28)
[2018-03-25] MEDS: ACETAMINOPHEN 1000 MG/100 ML VIAL (NON FORMULARY) IVPB PRN (03:08)
[2018-03-25] MEDS: D5-NS + 20 MEQ KCL - 20 MEQ/1,000 ML INFUS.BAG IV SCH ×3 (03:56→10:30)
[2018-03-25 09:36] LABS: BASO % 0.2 % (0-2.0); EOS % 0.8 % (0-4.5); HEMATOCRIT 39.9 % (32.4-45.2); HEMOGLOBIN 13.8 GM/dL (10.7-15.3); LYMPH % 17.1 % (8-40); MCH 29.9 pg (25.7-33.7); MCHC 34.5 g/dl (32.0-36.0); MEAN CELL VOLUME 86.9 fl (80-96); MONO % 8.7 % (3.8-10.2); NEUT % 73.2 % (42.8-82.8); PLATELET COUNT 161 K/MM3 (134-434); RBC 4.59 M/mm3 (3.60-5.2); RDW 12.7 % (11.6-15.6); WHITE BLOOD COUNT 5.4 K/mm3 (4.0-10.0)
[2018-03-25 10:14] LABS: ALBUMIN 3.6 g/dl (3.4-5.0); ALK PHOS 62 U/L (45-117); ANION GAP 6 MMOL/L (8-16); BILIRUBIN,TOTAL 0.5 mg/dL (0.2-1); BLOOD UREA NITROGEN 20 mg/dL (7-18); CALCIUM 9.5 mg/dL (8.5-10.1); CHLORIDE 106 mmol/L (98-107); CO2 30 mmol/L (21-32); CREATININE 0.9 mg/dL (0.55-1.3); GLUCOSE,RANDOM 141 mg/dL (74-106); POTASSIUM 3.1 mmol/L (3.5-5.1); SGOT/AST 10 U/L (15-37); SGPT/ALT 22 U/L (13-61); SODIUM 143 mmol/L (136-145); TOT PROT 7.1 g/dl (6.4-8.2)
[2018-03-25] MEDS: ENOXAPARIN NA (PORCINE) 40 MG/0.4 ML DISP.SYRIN SQ SCH (10:28)
[2018-03-25] MEDS: PANTOPRAZOLE SODIUM 40 MG VIAL IVPUSH SCH (10:46)
[2018-03-25] MEDS ORDERED: D5-NS + 20 MEQ KCL - 20 MEQ/1,000 ML INFUS.BAG IV SCH (12:16)
--- NOTE | 2018-03-25 12:20 | PN ---
Progress Note (short form) - Note Progress Note: Still with continuous NG suction She has pain in left lower quadrant no nausea a her throat hurts has low urine output Vital Signs - 24 hr 03/24/18 03/24/18 03/24/18 14:00 18:00 21:00 Temperature 99.1 F 99.0 F Pulse Rate 57 L 57 L Respiratory 20 20 20 Rate Blood Pressure 136/76 133/74 O2 Sat by Pulse 98 Oximetry (%) 03/25/18 02:00 Temperature 98.9 F Pulse Rate 54 L Respiratory 20 Rate Blood Pressure 121/51 L O2 Sat by Pulse Oximetry (%) Current Medications Generic Name Dose Route Start Last Admin Trade Name Freq PRN Reason Stop Dose Admin Benzocaine/Menthol 1 each 03/25/18 12:15 Cepacol Lozenge - MM PRN PRN SORE THROAT Enoxaparin Sodium 40 mg 03/22/18 10:00 03/25/18 10:28 Lovenox - SQ Not Given DAILY GWEN Potassium Chloride 10 meq in 100 mls @ 100 mls/hr 03/25/18 12:15 Potassium Chloride 10 Meq Premix Ivpb - IVPB 03/25/18 14:14 Q60M GWEN Dextrose/Sodium Chloride 20 meq in 1,000 mls @ 200 mls/hr 03/25/18 12:16 Dextrose 5%-Normal Saline+20 Meq Kcl - IV ASDIR GWEN Ondansetron HCl 4 mg 03/20/18 23:31 03/23/18 04:38 Zofran Injection IVPUSH 4 mg Q6H PRN Administration NAUSEA AND/OR VOMITING Pantoprazole Sodium 40 mg 03/22/18 10:00 03/25/18 10:46 Protonix Iv IVPUSH 40 mg DAILY GWEN Administration Phenol/Menthol 1 spray 03/23/18 08:19 03/24/18 20:30 Chloraseptic - MM 1 spray Q4H PRN Administration SORE THROAT Laboratory Results - last 24 hr 03/25/18 03/25/18 09:00 09:00 WBC 5.4 RBC 4.59 Hgb 13.8 Hct 39.9 MCV 86.9 MCH 29.9 MCHC 34.5 RDW 12.7 Plt Count 161 MPV 9.0 Absolute Neuts (auto) 4.0 Neutrophils % 73.2 Lymphocytes % 17.1 Monocytes % 8.7 Eosinophils % 0.8 D Basophils % 0.2 Nucleated RBC % 0 Sodium 143 Potassium 3.1 L Chloride 106 Carbon Dioxide 30 Anion Gap 6 L BUN 20 H Creatinine 0.9 Creat Clearance w eGFR > 60 Random Glucose 141 H Calcium 9.5 Total Bilirubin 0.5 AST 10 L ALT 22 Alkaline Phosphatase 62 Total Protein 7.1 Albumin 3.6 S1 S2 RRR Lungs clear Oral - moist Abd-- soft, distended, BS not present , decreased tender LLQ No edema PLAN NPO may have ice chips cepachol as needed iv fluids increase pt reassured-- has good renal function replace potassium may need to proceed with surgery as pt has not recovered bowel function at this time no flatus or bm yet Problem List - Problems (1) Abdominal pain Code(s): R10.9 - UNSPECIFIED ABDOMINAL PAIN (2) LLQ abdominal pain Code(s): R10.32 - LEFT LOWER QUADRANT PAIN (3) SBO (small bowel obstruction) Code(s): K56.609 - UNSP INTESTNL OBST, UNSP TO PARTIAL VERSUS COMPLETE OBST
[2018-03-25] MEDS: KCL 10 MEQ IVPB 10 MEQ/100 ML INFUS.BAG IVPB SCH ×2 (13:30→14:51)
[2018-03-25] MEDS: BENZOCAINE/MENTH/CETYLPYRD CL 1 EACH LOZENGE MM PRN (17:57)
[2018-03-25] MEDS ORDERED: ACETAMINOPHEN 325 MG TABLET (FP) PO PRN (20:28)
[2018-03-25] MEDS ORDERED: ACETAMINOPHEN 1000 MG/100 ML VIAL (NON FORMULARY) IVPB ONE (21:01)
[2018-03-25] MEDS: D5-1/2NS+20 MEQ KCL - 20 MEQ/1,000 ML INFUS.BAG IV SCH (22:13)
[2018-03-26 09:03] LABS: ANION GAP 3 MMOL/L (8-16); BLOOD UREA NITROGEN 17 mg/dL (7-18); CALCIUM 9.2 mg/dL (8.5-10.1); CHLORIDE 111 mmol/L (98-107); CO2 29 mmol/L (21-32); CREATININE 0.9 mg/dL (0.55-1.3); GLUCOSE,RANDOM 115 mg/dL (74-106); POTASSIUM 3.5 mmol/L (3.5-5.1); SODIUM 143 mmol/L (136-145)
--- NOTE | 2018-03-26 09:15 | PN ---
Progress Note (short form) - Note Progress Note: Still with continuous NG suction increased gastric contents in cannister she had margarito blood in NGT last night and afterwards was yellow- dark no abd pain very concerned about her surgery -- she will not undergo surgery tomorrow unless she speaks with surgeon concerned that she has poor urine output Vital Signs - 24 hr 03/25/18 03/25/18 03/25/18 14:00 18:00 21:00 Temperature 98.6 F 98.4 F Pulse Rate 53 L 54 L Respiratory 18 18 18 Rate Blood Pressure 144/80 141/76 O2 Sat by Pulse 98 Oximetry (%) 03/26/18 03/26/18 02:00 06:00 Temperature 98.7 F 98.4 F Pulse Rate 56 L 64 Respiratory 18 18 Rate Blood Pressure 138/74 134/70 O2 Sat by Pulse Oximetry (%) Current Medications Generic Name Dose Route Start Last Admin Trade Name Freq PRN Reason Stop Dose Admin Acetaminophen 650 mg 03/25/18 20:28 Tylenol - PO Q6H PRN PAIN LEVEL 4 - 6 Benzocaine/Menthol 1 each 03/25/18 12:15 03/25/18 17:57 Cepacol Lozenge - MM 1 each PRN PRN Administration SORE THROAT Enoxaparin Sodium 40 mg 03/22/18 10:00 03/26/18 09:27 Lovenox - SQ Not Given DAILY GWEN Potassium Chloride/Dextrose/Sod Cl 20 meq in 1,000 mls @ 100 mls/hr 03/25/18 22:00 03/25/18 22:13 D5-1/2ns+20 Meq Kcl - IV 100 mls/hr ASDIR GWEN Administration Ondansetron HCl 4 mg 03/20/18 23:31 03/23/18 04:38 Zofran Injection IVPUSH 4 mg Q6H PRN Administration NAUSEA AND/OR VOMITING Pantoprazole Sodium 40 mg 03/22/18 10:00 03/26/18 09:27 Protonix Iv IVPUSH 40 mg DAILY GWEN Administration Phenol/Menthol 1 spray 03/23/18 08:19 03/24/18 20:30 Chloraseptic - MM 1 spray Q4H PRN Administration SORE THROAT Laboratory Results - last 24 hr 03/25/18 03/26/18 09:00 07:30 Sodium 143 143 Potassium 3.1 L 3.5 Chloride 106 111 H Carbon Dioxide 30 29 Anion Gap 6 L 3 L BUN 20 H 17 Creatinine 0.9 0.9 Creat Clearance w eGFR > 60 > 60 Random Glucose 141 H 115 H Calcium 9.5 9.2 Total Bilirubin 0.5 AST 10 L ALT 22 Alkaline Phosphatase 62 Total Protein 7.1 Albumin 3.6 NGT+ S1 S2 RRR Lungs clear Oral - moist Abd-- soft, distended, BS not present , decreased tender LLQ No edema PLAN NPO may have ice chips cepachol as needed iv fluids increase- not in volume overload potassium , electrolytes good pt reassured-- has good renal function- explained that she has increased gastric contents suctioned which replaces the urine output spoke with surgeon who will be here to speak with pt-- I have requested that her family members be present at the time of discussion may need to proceed with surgery as pt has not recovered bowel function at this time no flatus or bm yet time spent 30 min Problem List - Problems (1) Abdominal pain Code(s): R10.9 - UNSPECIFIED ABDOMINAL PAIN (2) LLQ abdominal pain Code(s): R10.32 - LEFT LOWER QUADRANT PAIN (3) SBO (small bowel obstruction) Code(s): K56.609 - UNSP INTESTNL OBST, UNSP TO PARTIAL VERSUS COMPLETE OBST
[2018-03-26] MEDS: PANTOPRAZOLE SODIUM 40 MG VIAL IVPUSH SCH (09:27)
[2018-03-26] MEDS: ENOXAPARIN NA (PORCINE) 40 MG/0.4 ML DISP.SYRIN SQ SCH (09:27)
[2018-03-26] MEDS ORDERED: ACETAMINOPHEN 1000 MG/100 ML VIAL (NON FORMULARY) IVPB PRN (10:17)
[2018-03-26] MEDS ORDERED: PT OWN MED DRAWER 7, Y5N ONE (11:23)
[2018-03-26] MEDS: BENZOCAINE/MENTH/CETYLPYRD CL 1 EACH LOZENGE MM PRN ×2 (11:24→18:25)
--- NOTE | 2018-03-26 13:21 | PN ---
Progress Note (short form) - Note Progress Note: Attending Surgeon No new c/o; has not passed flatus nor had a BM and continues to have large amounts of GI drainage; she denies pain. VSS AF abdo-soft and non tender; minimally tympanitic AXR-although limited remains c/w SBO labs noted and CBC and elytes are wnl IMP:SBO PLAN:She declines to consent for surgery tomorrow. I had an extensive 55 minute conversation with the patient and her sister Kiki; w/the aid of a diagram I illustrated to them the mechanical nature of the problem and why I am suggesting surgery to correct this problem as she has failed conservative measures to relieve her obstruction; I indicated to her that the obstruction is most likely in the pelvis at the site of the previous hysterectomy; she asked if the surgery was " exploratory " in nature and to a reasonable extent it is; her sister asked why if she had a hysterectomy in the past why she has never had a bowel obstruction and we discussed this as well; as she has no evidence of an acute surgical abdomen I suggested that perhaps we do a UGIS w/SBFT to try and illustrate to her the exact level of the obstruction; this can at times be therapeutic as well; will f/u in the AM 03/27/18. Adrian Rivera MD FACS
[2018-03-26] MEDS: D5-1/2NS+20 MEQ KCL - 20 MEQ/1,000 ML INFUS.BAG IV SCH ×2 (14:24→15:01)
[2018-03-27] MEDS ORDERED: PT OWN MED DRAWER 7, Y5N ONE (00:13)
[2018-03-27] MEDS ORDERED: LIDOCAINE HCL 5% TOP OINTMENT 50 GM TUBE TP ONE (00:48)
[2018-03-27] MEDS: D5-1/2NS+20 MEQ KCL - 20 MEQ/1,000 ML INFUS.BAG IV SCH (02:35)
[2018-03-27] MEDS: BENZOCAINE/MENTH/CETYLPYRD CL 1 EACH LOZENGE MM PRN (02:55)
[2018-03-27 07:58] LABS: BASO % 0.4 % (0-2.0); EOS % 1.9 % (0-4.5); HEMATOCRIT 39.1 % (32.4-45.2); LYMPH % 22.5 % (8-40); MCH 29.5 pg (25.7-33.7); MCHC 33.3 g/dl (32.0-36.0); MEAN CELL VOLUME 88.3 fl (80-96); MONO % 9.4 % (3.8-10.2); NEUT % 65.8 % (42.8-82.8); PLATELET COUNT 174 K/MM3 (134-434); RBC 4.43 M/mm3 (3.60-5.2); RDW 12.8 % (11.6-15.6); WHITE BLOOD COUNT 5.8 K/mm3 (4.0-10.0)
[2018-03-27 08:24] LABS: ALBUMIN 3.4 g/dl (3.4-5.0); ALK PHOS 65 U/L (45-117); ANION GAP 3 MMOL/L (8-16); BILIRUBIN,TOTAL 0.5 mg/dL (0.2-1); BLOOD UREA NITROGEN 15 mg/dL (7-18); CALCIUM 9.2 mg/dL (8.5-10.1); CHLORIDE 108 mmol/L (98-107); CO2 29 mmol/L (21-32); CREATININE 0.9 mg/dL (0.55-1.3); GLUCOSE,RANDOM 118 mg/dL (74-106); MAGNESIUM 2.2 mg/dL (1.8-2.4); POTASSIUM 3.7 mmol/L (3.5-5.1); SGOT/AST 13 U/L (15-37); SGPT/ALT 17 U/L (13-61); SODIUM 140 mmol/L (136-145)
[2018-03-27] MEDS: PANTOPRAZOLE SODIUM 40 MG VIAL IVPUSH SCH (10:15)
--- NOTE | 2018-03-27 13:28 | PN ---
Progress Note (short form) - Note Progress Note: Attending Surgeon Remains the same; SBS in progress VSS AF abdo-no change IMP: SBO PLAN: Continue SBS; d/w the radiologist preliminary resul;ts and conveyed same to patient and sister; they wish to continue the study eventhough it is conclusive surgery is indicated. Adrian Rviera MD FACS
--- NOTE | 2018-03-27 13:33 | PN ---
Progress Note, Physician History of Present Illness: Pt seen/examined at bedside, s/p UGI/small bowel series requested per surgery. Still with significant NG output. Small bm reported per pt. Pt had refused surgical intervention, requested second opinion. Dr. Lucas evaluating this afternoon. - Current Medication List Current Medications: Active Medications Acetaminophen (Ofirmev Injection -) 1,000 mg IVPB Q6H PRN PRN Reason: MILD PAIN Benzocaine/Menthol (Cepacol Lozenge -) 1 each MM PRN PRN PRN Reason: SORE THROAT Last Admin: 03/27/18 02:55 Dose: 1 each Enoxaparin Sodium (Lovenox -) 40 mg SQ DAILY [facility] Last Admin: 03/26/18 09:27 Dose: Not Given Potassium Chloride/Dextrose/Sod Cl (D5-1/2ns+20 Meq Kcl -) 20 meq in 1,000 mls @ 200 mls/hr IV ASDIR [facility] Last Admin: 03/27/18 02:35 Dose: 200 mls/hr Ondansetron HCl (Zofran Injection) 4 mg IVPUSH Q6H PRN PRN Reason: NAUSEA AND/OR VOMITING Last Admin: 03/23/18 04:38 Dose: 4 mg Pantoprazole Sodium (Protonix Iv) 40 mg IVPUSH DAILY [facility] Last Admin: 03/26/18 09:27 Dose: 40 mg Phenol/Menthol (Chloraseptic -) 1 spray MM Q4H PRN PRN Reason: SORE THROAT Last Admin: 03/24/18 20:30 Dose: 1 spray - Objective Vital Signs: Vital Signs Temperature 98.4 F 03/27/18 06:00 Pulse Rate 57 L 03/27/18 06:00 Respiratory Rate 18 03/27/18 06:00 Blood Pressure 134/84 03/27/18 06:00 O2 Sat by Pulse Oximetry (%) 97 03/26/18 21:00 Constitutional: Yes: Well Nourished, No Distress, Calm HENT: Yes: Other (NGT in place draining dark bilious/manoj colored output) Cardiovascular: Yes: WNL, Regular Rate and Rhythm Respiratory: Yes: WNL, Regular, CTA Bilaterally Gastrointestinal: Yes: Soft, Other (Softly distended, mildly tympanitic, nontender) Labs: CBC, BMP 03/27/18 06:20 03/27/18 06:20 - ....Imaging X-ray: Pending, Report Reviewed Cat Scan: Pending, Report Reviewed Problem List - Problems (1) SBO (small bowel obstruction) Assessment/Plan: Surgical intervention advised per Dr. Rivera, however pt deferred. UGI series/ SBFT done this am as requested by surgery. Second surgical opinion requested. -NG decompression, IVF -Pt now agreeable to surgery with Dr. Lucas -OR timing per surgery Code(s): K56.609 - UNSP INTESTNL OBST, UNSP TO PARTIAL VERSUS COMPLETE OBST
--- NOTE | 2018-03-27 14:26 | PN ---
Progress Note (short form) - Note Progress Note: pt seen/ examined. all f/u noted just came back from x ray want to see another surgeon for second opinion. ngt ++ not willing for surgery . Vital Signs Temp 98.4 F 03/27/18 06:00 Pulse 57 L 03/27/18 06:00 Resp 18 03/27/18 06:00 BP 134/84 03/27/18 06:00 Pulse Ox 97 03/26/18 21:00 Intake & Output 03/26/18 03/27/18 03/27/18 23:59 11:59 23:59 Intake Total 1999 4900 Output Total 250 850 Balance 1750 4050 Intake: IV 2000 4800 D5-1/2NS+20 MEQ KCL - 20 2000 meq In 1,000 ml @ 100 mls /hr IV ASDIR [facility] Rx#: [id number] D5-1/2NS+20 MEQ KCL - 20 4800 meq In 1,000 ml @ 200 mls /hr IV ASDIR [facility] Rx#: [id number] IVPB 100 Oral 0 Output: Gastric Drainage 600 Urine 250 250 Void 250 250 Other: Voiding Method Bedside Commode Bedside Commode Bowel Movement No No Active Medications Acetaminophen (Ofirmev Injection -) 1,000 mg IVPB Q6H PRN PRN Reason: MILD PAIN Enoxaparin Sodium (Lovenox -) 40 mg SQ DAILY [facility] Last Admin: 03/26/18 09:27 Dose: Not Given Potassium Chloride/Dextrose/Sod Cl (D5-1/2ns+20 Meq Kcl -) 20 meq in 1,000 mls @ 200 mls/hr IV ASDIR [facility] Last Admin: 03/27/18 02:35 Dose: 200 mls/hr Ondansetron HCl (Zofran Injection) 4 mg IVPUSH Q6H PRN PRN Reason: NAUSEA AND/OR VOMITING Last Admin: 03/23/18 04:38 Dose: 4 mg Pantoprazole Sodium (Protonix Iv) 40 mg IVPUSH DAILY [facility] Last Admin: 03/26/18 09:27 Dose: 40 mg Phenol/Menthol (Chloraseptic -) 1 spray MM Q4H PRN PRN Reason: SORE THROAT Last Admin: 03/24/18 20:30 Dose: 1 spray CBC, BMP 03/27/18 06:20 03/27/18 06:20 physical exam anxious/ trying S1 S2 RRR Lungs clear Abd-- soft, quiet No edema assessment and plan Small bowel obstruction Surgery indicated Discussed in detail with patient Refusing surgery--But would like to have another surgical opinion I spoke with Dr. Juarez--- she will come and evaluate Will follow I also discussed with the patient's PMD. Time spent--- almost 35 minutes Problem List - Problems (1) SBO (small bowel obstruction) Code(s): K56.609 - UNSP INTESTNL OBST, UNSP TO PARTIAL VERSUS COMPLETE OBST
--- NOTE | 2018-03-27 16:01 | CONSULT ---
Consult Consult Specialty:: General Surgery Referred by:: Dr. Burleson Reason for Consultation:: second opinion for surgery for SBO - History of Present Illness Chief Complaint: abdominal pain, distention, vomiting History of Present Illness: 58yo F with no sig PMH except herniated disc which does not bother her usually and a heart murmur, s/p hysterectomy 2011 (lap converted to open), was admitted last week with abdominal distention, crampy LLQ pain and vomiting without nausea. She initially had symptoms start Tuesday after work, with LLQ pain she thought was gas. She then had an episode of vomiting, and went to [facility], where she had CT with IV but no PO contrast and was diagnosed with gastroenteritis, kept overnight for hydration, did not vomit further, and was discharged in the morning to f/u with PCP. She saw her PMD Tuesday, who thought she might have norovirus, and she vomited in his office, and was sent to [facility] ER for hydration and admitted to medicine. CT at that time showed SBO with transition in pelvis. Surgery (Dr. Rivera) was consulted and CT repeated with PO contrast, showing worsening SBO with a little ascites, and NGT was placed after more vomiting with copious output over this last week. AXR have failed to show improvement, and surgery was recommended by today if not better over the weekend. Dr. Rivera documented an extensive discussion with the patient and her sister regarding the need for surgery and explanation thereof, but she has still been hesitant to consent. Surgery was scheduled for this morning, but she preferred to wait, and small bowel series was also carried out, which still shows SBO at 2 and 4 hours. She requested a second opinion, and I was asked to consult. She is seen and examined in her room, in bed, with sister Kiki present. She just had a small BM in commode and a little bit of gas. NGT has put out 650ml so far this shift per nurse, manoj/bilious fluid. She c/o mainly of throat pain from the tube and discomfort from the abdominal distention, like gas pains. Abdominal pain has actually improved. I explained that the stool and gas were from below the level of obstruction, but that it didn't mean she was better. 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 denies: Difficult Swallowing, Nasal Congestion Neck: denies: Swollen Glands, Tenderness Cardiovascular: denies: Chest Pain, Palpitations Respiratory: denies: Cough, SOB Gastrointestinal: reports: Abdominal Pain (with hpi), Bloating (with hpi), Constipation (just this last week, but just had small BM), Vomiting (with hpi). denies: Diarrhea, Nausea Genitourinary: denies: Burning, Dysuria Musculoskeletal: denies: Back Pain, Joint Pain, Muscle Pain Neurological: denies: Dizziness, Headache Psychiatric: denies: Anxiety, Depression Physical Exam Vital Signs: Vital Signs Temperature 98.4 F 03/27/18 06:00 Pulse Rate 57 L 03/27/18 06:00 Respiratory Rate 18 03/27/18 06:00 Blood Pressure 134/84 03/27/18 06:00 O2 Sat by Pulse Oximetry (%) 97 03/26/18 21:00 Constitutional: Yes: Well Nourished, No Distress, Calm Eyes: Yes: Conjunctiva Clear, EOM Intact HENT: Yes: Atraumatic, Normocephalic, Other (NGT in place, secured at ~67cm) Neck: Yes: Supple, Trachea Midline Cardiovascular: Yes: Regular Rate and Rhythm, Murmur Respiratory: Yes: Regular, CTA Bilaterally Gastrointestinal: Yes: Soft, Distention (some tympany, some dullness), Hypoactive Bowel Sounds (absent). No: Tenderness (mild discomfort with palpation from distention/pressure but not tender), Tenderness, Epigastrium, Tenderness, Rebound ...Rectal Exam: Yes: Deferred Renal/: No: CVA Tenderness - Left, CVA Tenderness - Right Musculoskeletal: No: Back Pain, Joint Stiffness, Joint Swelling Extremities: No: Cool, Cyanosis Edema: No Peripheral Pulses WNL: Yes Integumentary: No: Jaundice, Rash Neurological: Yes: Alert, Oriented Psychiatric: Yes: Alert, Oriented Labs: CBC, BMP 03/27/18 06:20 03/27/18 06:20 CMP Sodium 140 mmol/L (136-145) 03/27/18 06:20 Potassium 3.7 mmol/L (3.5-5.1) 03/27/18 06:20 Chloride 108 mmol/L (98-107) H 03/27/18 06:20 Carbon Dioxide 29 mmol/L (21-32) 03/27/18 06:20 Anion Gap 3 MMOL/L (8-16) L 03/27/18 06:20 BUN 15 mg/dL (7-18) 03/27/18 06:20 Creatinine 0.9 mg/dL (0.55-1.3) 03/27/18 06:20 Creat Clearance w eGFR > 60 (>60) 03/27/18 06:20 Random Glucose 118 mg/dL (74-106) H 03/27/18 06:20 Calcium 9.2 mg/dL (8.5-10.1) 03/27/18 06:20 Magnesium 2.2 mg/dL (1.8-2.4) 03/27/18 06:20 Total Bilirubin 0.5 mg/dL (0.2-1) 03/27/18 06:20 AST 13 U/L (15-37) L 03/27/18 06:20 ALT 17 U/L (13-61) 03/27/18 06:20 Alkaline Phosphatase 65 U/L (45-117) 03/27/18 06:20 Total Protein 7.0 g/dl (6.4-8.2) 03/27/18 06:20 Albumin 3.4 g/dl (3.4-5.0) 03/27/18 06:20 TSH 0.65 uIU/ml (0.358-3.74) 03/23/18 07:50 Urine Test Results Urine Color Yellow 03/20/18 19:08 Urine Appearance Clear 03/20/18 19:08 Urine pH 5.0 (5.0-8.0) 03/20/18 19:08 Ur Specific [place] 1.041 (1.010-1.035) H 03/20/18 19:08 Urine Protein 1+ (NEGATIVE) H 03/20/18 19:08 Urine Glucose (UA) Negative (NEGATIVE) 03/20/18 19:08 Urine Ketones 1+ (NEGATIVE) H 03/20/18 19:08 Urine Blood Negative (NEGATIVE) 03/20/18 19:08 Urine Nitrite Negative (NEGATIVE) 03/20/18 19:08 Urine Bilirubin Negative (<2.0 mg/dL) 03/20/18 19:08 Ur Leukocyte Esterase Negative (NEGATIVE) 03/20/18 19:08 Ur Epithelial Cells Rare /HPF (FEW) 03/20/18 19:08 Urine Mucus Moderate 03/20/18 19:08 no coags or T&S Imaging - Results X-ray: Report Reviewed, Image Reviewed (serial AXR reviewed - no improvement in SBO, SB series from today reviewed - still obstructed at 2 and 4 hours) Cat Scan: Report Reviewed, Image Reviewed (CT images personally reviewed - SBO with transition in distal SB in pelvis, no free air, little fluid) Problem List - Problems (1) Intestinal adhesions with complete obstruction Assessment/Plan: complete SBO, likely secondary to adhesions from hysterectomy no improvement with conservative measures in at least 5 days all notes and imaging reviewed agree with Dr. Rivera that surgery is indicated pt and sister were shown her imaging in her room she is now agreeable to OR, but prefers me to perform procedure Discussed with patient risks, benefits and alternatives of exploratory laparotomy, possible bowel resection possible ostomy, including but not limited to bleeding, infection, injury to adjacent structures, intestinal leak or injury , intraabdominal abscess, incisional hernia, recurrent bowel obstruction, need for further procedures, ; alternative of no surgery at this point carries risks of perforation, sepsis, peritonitis, . Patient agreeable to proceed with operation - will take to OR for above as soon as time is available. Informed consent signed for same. NGT will stay postoperatively until bowel function resumes keep NPO - no ice chips or water NGT/IVF will send stat PT and T&S discussed with Dr. Burleson of primary team Dr. Rivera aware Code(s): K56.52 - INTESTINAL ADHESIONS [BANDS] WITH COMPLETE OBSTRUCTION (2) LLQ abdominal pain Code(s): R10.32 - LEFT LOWER QUADRANT PAIN (3) Abdominal distention Code(s): R14.0 - ABDOMINAL DISTENSION (GASEOUS) (4) Vomiting alone Code(s): R11.11 - VOMITING WITHOUT NAUSEA
[2018-03-27] MEDS: ENOXAPARIN NA (PORCINE) 40 MG/0.4 ML DISP.SYRIN SQ SCH (16:02)
[2018-03-27 18:00] LABS: INR 1.15 (0.83-1.09); PROTHROMBIN TIME (PATIENT) 13.6 SEC (9.7-13.0)
[2018-03-27] MEDS: ONDANSETRON 4 MG/2 ML VIAL IVPUSH PRN (19:14)
[2018-03-27] MEDS ORDERED: SUCCINYLCHOLINE CHLORIDE 200 MG/10 ML VIAL ONE (19:52)
[2018-03-27] MEDS ORDERED: PROPOFOL 20 ML ONE (19:52)
[2018-03-27] MEDS ORDERED: fentaNYL CITRATE 250 MCG/5 ML VIAL ONE (19:52)
[2018-03-27] MEDS ORDERED: ROCURONIUM BROMIDE 50 MG/5 ML VIAL ONE ×2 (19:52→22:07)
[2018-03-27] MEDS ORDERED: D5-1/2NS+20 MEQ KCL - 20 MEQ/1,000 ML INFUS.BAG IV SCH (20:49)
[2018-03-27] MEDS ORDERED: CEFOXITIN SODIUM 1 GM IVPB ONE (21:01)
[2018-03-27] MEDS ORDERED: SODIUM CHLORIDE 0.9% P/F 10 ML VIAL IJ ONE (21:02)
[2018-03-27] MEDS ORDERED: PHENYLEPHRINE HCL 10 MG/1 ML SINGLE DOSE VIAL ONE (21:06)
[2018-03-27] MEDS ORDERED: ONDANSETRON 4 MG/2 ML VIAL IVPUSH PRN ×2 (21:38→23:28)
[2018-03-27] MEDS ORDERED: DEXAMETHASONE SOD PHOSPHATE 4 MG/1 ML VIAL IVPUSH PRN (21:38)
[2018-03-27] MEDS ORDERED: PROMETHAZINE HCL 25 MG/1 ML VIAL IVPB PRN (21:38)
[2018-03-27] MEDS ORDERED: HYDROmorphone *PCA* 10MG/50ML DISP.SYRIN PCA SCH (21:45)
[2018-03-27] MEDS ORDERED: NEOSTIGMINE METHYLSULFATE 0.5 MG/ML - 10 ML MDV ONE (22:20)
[2018-03-27] MEDS ORDERED: GLYCOPYRROLATE 0.2 MG/1 ML VIAL ONE (22:21)
--- NOTE | 2018-03-27 23:08 | OP ---
Operative Note - Note: Operative Date: 03/27/18 Pre-Operative Diagnosis: adhesive distal small bowel obstruction, complete Operation: small bowel resection, lysis of adhesions Findings: distal ileum stuck in left/mid pelvis with adhesive bands, lysed x3; part of SB stuck to itself, released; short loop of ileum resected for stricture with stapled anastomosis done; proximal bowel dilated and fluid-filled - fluid began flowing distally after anastomosis; normal appendix, could not palpate NG from lower midline incision Post-Operative Diagnosis: Same as Pre-op Surgeon: Shai Lucas Fish Pitcher: Quincy Mckeon Anesthesiologist/MANUFACTURING DEVELOPMENT ENGINEER: Quintin Seth Anesthesia: General Specimens Removed: portion of ileum to pathology, stitch ibrahim distal Estimated Blood Loss (mls): 40 Drains & Tubes with Location: preop NGT left, Hernandez placed and left Drains, Volume Out (mls): 50 (UOP) Fluid Volume Replaced (mls): 2,500 (crystalloid) Operative Report Dictated: Yes
[2018-03-27] MEDS ORDERED: LACTATED RINGERS SOLUTION 1,000 ML/1,000 ML INFUS.BAG IV STA ×2 (23:10→23:28)
[2018-03-27] MEDS ORDERED: MORPHINE SULFATE 2 MG/ML VIAL IVPUSH PRN ×2 (23:12→23:28)
[2018-03-27] MEDS ORDERED: morphine SULFATE 4 MG/ML VIAL IVPUSH PRN ×2 (23:12→23:28)
[2018-03-27] MEDS ORDERED: PHENOL 177 ML SPRAY BOTTLE MM PRN (23:28)
[2018-03-28] MEDS ORDERED: ACETAMINOPHEN 1000 MG/100 ML VIAL (NON FORMULARY) IVPB SCH
[2018-03-28] MEDS: ACETAMINOPHEN 1000 MG/100 ML VIAL (NON FORMULARY) IVPB SCH ×4 (00:15→18:12)
[2018-03-28] MEDS: D5-1/2NS+20 MEQ KCL - 20 MEQ/1,000 ML INFUS.BAG IV SCH ×3 (00:59→12:35)
[2018-03-28] MEDS ORDERED: CEFOXITIN SODIUM 1 GM in DEXTROSE 5%-WATER - 100 ML IVPB ONE ×3 (03:00)
[2018-03-28] MEDS ORDERED: IBUPROFEN 800 MG/8 ML IJ IVPB SCH (03:00)
[2018-03-28] MEDS: IBUPROFEN 800 MG/8 ML IJ IVPB SCH ×4 (03:56→21:16)
[2018-03-28] MEDS ORDERED: INSULIN (NOVOLOG) ASPART 100 UNITS/ML 10ML VIAL ONE (06:35)
[2018-03-28] MEDS ORDERED: INSULIN (LEVEMIR) 100 UNITS/ML UNITS SQ ONE (06:35)
[2018-03-28 07:08] LABS: BASO % 0.1 % (0-2.0); HEMATOCRIT 42.4 % (32.4-45.2); HEMOGLOBIN 14.4 GM/dL (10.7-15.3); LYMPH % 9.8 % (8-40); MCH 29.7 pg (25.7-33.7); MEAN CELL VOLUME 87.2 fl (80-96); MEAN PLT VOLUME 8.8 fl (7.5-11.1); MONO % 5.8 % (3.8-10.2); NEUT % 84.3 % (42.8-82.8); PLATELET COUNT 203 K/MM3 (134-434); RBC 4.86 M/mm3 (3.60-5.2); RDW 12.7 % (11.6-15.6); WHITE BLOOD COUNT 8.3 K/mm3 (4.0-10.0)
[2018-03-28 09:02] LABS: ANION GAP 9 MMOL/L (8-16); CHLORIDE 106 mmol/L (98-107); CO2 27 mmol/L (21-32); CREATININE 1.1 mg/dL (0.55-1.3); GLUCOSE,RANDOM 128 mg/dL (74-106); MAGNESIUM 1.7 mg/dL (1.8-2.4); PHOSPHOROUS 4.8 mg/dL (2.5-4.9); SODIUM 142 mmol/L (136-145)
[2018-03-28] MEDS: PANTOPRAZOLE SODIUM 40 MG VIAL IVPUSH SCH (09:23)
[2018-03-28] MEDS: ENOXAPARIN NA (PORCINE) 40 MG/0.4 ML DISP.SYRIN SQ SCH (09:23)
--- NOTE | 2018-03-28 11:29 | OP ---
DATE OF OPERATION: 03/27/2018 PREOPERATIVE DIAGNOSIS: Complete adhesive distal small-bowel obstruction. POSTOPERATIVE DIAGNOSIS: Complete adhesive distal small-bowel obstruction. PROCEDURE: Small-bowel resection with lysis of adhesions. SURGEON: Shai Lucas MD ANNEALING TORCH OPERATOR: Quincy Mckeon MD ANESTHESIA: General endotracheal. ESTIMATED BLOOD LOSS: 40 mL. FLUIDS: Crystalloid, 2500 mL. URINE OUTPUT: 50 mL. SPECIMEN: Portion of ileum to Pathology, stitch ibrahim distal. DRAINS: Preoperative nasogastric tube was left in place. Hernandez catheter was placed and also left. FINDINGS: The distal ileum was stuck in the left/mid pelvis with adhesive bands which were lysed x3. Portion of small bowel was stuck to itself in the same area and released. A short loop of ileum was resected for a strictured segment with a stapled anastomosis done. The proximal bowel was dilated and fluid filled. Distal bowel more decompressed. Fluid began flowing distally after the anastomosis. The appendix was noted to be normal and the NG could not be palpated clearly from the lower midline incision. DISPOSITION: Stable and extubated to PACU. INDICATIONS FOR PROCEDURE: The patient is a 58-year-old female with no significant past medical history except for herniated disk and a heart murmur, status post hysterectomy in 2011, laparoscopic converted to open, who was admitted last week with abdominal distention, crampy left lower quadrant pain and vomiting without nausea. She had been diagnosed with a distal small-bowel obstruction presumed to be secondary to adhesions and an NG tube was placed last week on the . Surgery had been consulted and was following her. Serial x-rays failed to show improvement with conservative measures and surgical intervention was recommended. At the time apparently she was hesitant to proceed and the patient and the surgeon decided to confirm lack of progress with a small-bowel series which was performed earlier today showing again no progression of contrast past the point of obstruction and continued obstructive picture, but the patient was hesitant to have surgery and requested a 2nd opinion at which time I first encountered the patient today. After reviewing the chart notes and imaging I agreed that the patient required surgery for relief of her obstructive symptoms and spoke with both her and her sister in person at the bedside, discussed risks, benefits and alternatives of exploratory laparotomy, possible bowel resection, possible ostomy including but not limited to bleeding, infection, injury to adjacent structures, intestinal leak or injury, intraabdominal abscess, incisional hernia, recurrent bowel obstruction, need for further procedures and and the alternative of no surgery which is the course they had already been pursuing at this point carried risks if continued of perforation, of bowel sepsis, peritonitis and . The patient was also shown her own images to reinforce the diagnosis and make it clear that surgery was needed for relief. She is now agreeable to proceed with an operation, signed informed consent for the same and is brought emergently to the operating room tonight for this procedure. OPERATIVE TECHNIQUE: The patient was brought to the operating room and laid supine on the operating table. Sequential compression devices were applied to bilateral lower extremities and after induction and intubation by Anesthesia a Hernandez catheter was placed in the patient's bladder and her abdominal hair was clipped and her abdomen was prepped and draped in sterile fashion. A lower midline incision was made with a scalpel and carried into subcutaneous tissues with electrocautery until the abdominal wall fascia was identified and cleared along the entire midline. The fascia was then also divided with electrocautery until the preperitoneal fat was identified in the midline and in the upper portion of the lower midline incision 2 clamps were placed on the peritoneum which was elevated and entered with Metzenbaum scissors between clamps with efflux of clear yellowish ascites which was suctioned with a pool sucker. The peritoneum in the rest of the incision was opened along its entire length with fingers inside to protect the bowel and the small bowel was immediately and apparently quite dilated and fluid filled. The loops began to be eviscerated until we could identify proximal and distal and continued eviscerating loops distally until the area of adhesive obstruction was encountered down and just left side of midline in the pelvis. Manually I was able to palpate that there were a couple of bands holding the bowel down in that area very tightly. I was ultimately able to slip my finger beneath 1 band and bring it into view to be lysed with electrocautery. This enabled us to continue to eviscerate a little bit more small bowel until a couple of other bands including adhesions of small bowel to small bowel were identified and serially lysed including 1 with the LigaSure Impact device and another few with Bovie electrocautery as well as LigaSure. Once the intestine had been completely freed from this configuration it was run distally to the terminal ileum where a normal appendix was also noted coming off the junction of the small and large bowel. The distal bowel was noted to be decompressed and all proximal bowel quite dilated and fluid filled. There was also noted to be at 1 of the transition points a stricture of the distal ileum and a few inches past that an area where there was a residual piece of adhesive tissue stuck to the bowel. It was decided to resect the short-portion loop inclusive of the strictured segment and the previously adhesed segment in 1 specimen. The loop easily came around to where the residual proximal and distal loops would be able to be anastomosed with a [id number] functional end-to-end stapled anastomosis. The resection was performed in typical fashion using a small clamp to make a window in the mesentery just at the edge of the bowel wall through which a GIA60 stapler was passed first at the proximal transition point just proximal to the strictured segment and then secondarily at the distal transection point just distal to the area that had the adhesion attached to the bowel. Once this had been accomplished the LigaSure Impact was used to completely transect the mesentery between the 2 bowel ends. The specimen was marked with a 3-0 Vicryl stitch distally and passed off the table to be sent to Pathology. The proximal bowel was then run all the way to the ligament of Treitz and eviscerated in order to do so. Again proximal loops were noted to be quite dilated and fluid filled. A little bit of the fluid was tried to be milked backward toward the stomach and NG tube, but for the most part this did not really help. The proximal bowel was noted to be free of any additional abnormalities and was serially returned to the abdominal cavity once the examination was complete leaving just the proximal and distal ends to be anastomosed outside of the incision. Clean towels were laid down on to the area. Vicryl 3-0 stitches were placed both at the corners of the staple lines to line up the ends of the bowel and also at what was expected to be the crotch of the anastomosis. The fluid was then milked back primarily from the proximal segment and the bowel occluded manually by my assistant branch manager, Dr. Mckeon, and a hole made in each segment by the staple line with electrocautery for insertion of the 2 ends of the GIA60 stapler. Anastomosis of the antimesenteric surfaces of the bowel was then performed by firing the GIA60 stapler. A suction was used to control the efflux and the open end of the enterotomy was held up with [place] clamps and a TA30 stapler used to close the enterotomy. Once the staple line had been removed from the TA with curved Fuchs scissors and included with the specimen the TA stapler was removed. The staple line was noted to be almost entirely hemostatic and electrocautery was used where necessary throughout the case and at this moment to effect appropriate hemostasis. It was also then noted that in the "T" portion of the underside of the anastomosis there was some leakage of clear fluid content. This appeared to be from not having brought the TA quite far enough down on the crossing of the staple lines. This was sealed with a series of 3 [id number] 3-0 silk sutures first to close the leak point and then to imbricate it underneath and in between the 2 sections of intestinal tissue that were adjacent near the staple lines. At the conclusion of the first of 3 stitches there was no further leakage from the bowel and manipulation of the anastomosis ensured both appropriate opening between the 2 sides as well as free motion of the fluid from proximal to distal across the new anastomosis without any further leakage. Irrigation of the lower abdomen was then carried out briefly with saline solution and a pool suction device as the entire bowel was returned to the abdominal cavity taking care to do so without any twists or kinks. Before we closed the fascia the mesenteric defect in the small-bowel mesentery was closed with a running 3-0 Vicryl stitch as well. The fascia was then closed with small malleable used to protect the bowel with 2 No. 1 looped PDS sutures in running fashion starting both at the bottom and the top and meeting in the middle. The knot was tacked down with a 3-0 Vicryl stitch. Then once the fascia had been completely reapproximated the skin was closed with arjun and a dressing of gauze and Tegaderm was folded and placed over the lower midline incision. The patient's Hernandez catheter was left in place at the end of the case and stat locked to her right inner thigh. The nasogastric tube unfortunately although an attempt was made could not be clearly palpated in the stomach from the lower midline incision but continued to function to suction out some fluid, thus was left secured where it had been preoperatively. Counts were correct at the end of the procedure. The patient was then awakened and extubated by Anesthesia, moved back to a stretcher and taken to the recovery room in stable condition having tolerated the procedure well. Dr. Mckeon was an essential assistant branch manager throughout the procedure from assisting with entry into the abdominal cavity, retraction and manipulation of the small bowel where necessary to help with exposure and with both resection and anastomosis of the small-bowel segments as well as with irrigation of the abdominal cavity and closure of the fascia as well as the skin. Shai Lucas M.D. ALEXIS/[id number]
[2018-03-28] MEDS ORDERED: MAGNESIUM SULF 50% (8.12 MEQ/2 ML-1 GM VIAL) IVPB ONE (12:00)
--- NOTE | 2018-03-28 12:56 | PN ---
Progress Note (short form) - Note Progress Note: Anesthesia postop note 58 y/o F s/p GA for exploratory laparotomy, small bowel resection, lysis of adhesions POD#1, vss, aaox3, sitiing in chair, pain fairly well controlled, uncomfortable due to the NGT and very dry mouth. No anesthesia complications.
[2018-03-28] MEDS ORDERED: SODIUM CHLORIDE 0.9% 500 ML INFUS.BAG IV ONE (13:35)
--- NOTE | 2018-03-28 13:36 | PN ---
Progress Note (short form) - Note Progress Note: POD #1 feels bloated no abd pain Vital Signs - 24 hr 03/27/18 03/27/18 03/27/18 21:00 22:50 23:00 Temperature 99.1 F Pulse Rate 60 60 Respiratory 18 16 18 Rate Blood Pressure 155/87 160/80 O2 Sat by Pulse 100 100 100 Oximetry (%) 03/27/18 03/27/18 03/27/18 23:15 23:30 23:45 Temperature Pulse Rate 62 60 64 Respiratory 16 16 20 Rate Blood Pressure 157/85 156/84 150/83 O2 Sat by Pulse 100 100 100 Oximetry (%) 03/28/18 03/28/18 03/28/18 00:00 00:15 00:30 Temperature Pulse Rate 67 67 70 Respiratory 18 15 17 Rate Blood Pressure 144/82 145/79 133/75 O2 Sat by Pulse 100 100 100 Oximetry (%) 03/28/18 03/28/18 03/28/18 00:45 05:45 09:00 Temperature 98.7 F 98.6 F Pulse Rate 72 96 H Respiratory 16 18 Rate Blood Pressure 132/78 134/88 O2 Sat by Pulse 97 Oximetry (%) 03/28/18 10:00 Temperature 97.9 F Pulse Rate 104 H Respiratory 20 Rate Blood Pressure 97/60 O2 Sat by Pulse Oximetry (%) Current Medications Generic Name Dose Route Start Last Admin Trade Name Freq PRN Reason Stop Dose Admin Acetaminophen 1,000 mg 03/28/18 00:00 03/28/18 12:04 Ofirmev Injection - IVPB 03/31/18 12:30 1,000 mg Q6H GWEN Administration Enoxaparin Sodium 40 mg 03/28/18 10:00 03/28/18 09:23 Lovenox - SQ 40 mg DAILY GWEN Administration Potassium Chloride/Dextrose/Sod Cl 20 meq in 1,000 mls @ 125 mls/hr 03/27/18 23:28 03/28/18 04:01 D5-1/2ns+20 Meq Kcl - IV 125 mls/hr ASDIR GWEN Administration Ibuprofen 600 mg 03/28/18 03:00 03/28/18 08:58 Caldolor Injection - IVPB 600 mg Q6H GWEN Administration Morphine Sulfate 2 mg 03/27/18 23:28 Morphine Sulfate IVPUSH Q3H PRN Pain Level 5-7 BREAKTHROUGH Morphine Sulfate 4 mg 03/27/18 23:28 Morphine Sulfate IVPUSH Q3H PRN Pain Level 8 - 10 BREAKTHROUGH Ondansetron HCl 4 mg 03/27/18 23:28 Zofran Injection IVPUSH Q6H PRN NAUSEA AND/OR VOMITING Pantoprazole Sodium 40 mg 03/28/18 10:00 03/28/18 09:23 Protonix Iv IVPUSH 40 mg DAILY GWEN Administration Phenol/Menthol 1 spray 03/27/18 23:28 Chloraseptic - MM Q4H PRN SORE THROAT Sodium Chloride 1,000 ml 03/28/18 13:35 Normal Saline - IV 03/28/18 13:36 ONCE ONE Laboratory Results - last 24 hr 03/27/18 03/27/18 03/28/18 16:30 16:30 06:30 WBC 8.3 RBC 4.86 Hgb 14.4 Hct 42.4 MCV 87.2 MCH 29.7 MCHC 34.0 RDW 12.7 Plt Count 203 MPV 8.8 Absolute Neuts (auto) 7.0 Neutrophils % 84.3 H D Lymphocytes % 9.8 D Monocytes % 5.8 Eosinophils % 0.0 D Basophils % 0.1 Nucleated RBC % 0 PT with INR 13.60 H INR 1.15 H Sodium Potassium Chloride Carbon Dioxide Anion Gap BUN Creatinine Creat Clearance w eGFR Random Glucose Calcium Phosphorus Magnesium Blood Type O POSITIVE Antibody Screen Negative 03/28/18 06:30 WBC RBC Hgb Hct MCV MCH MCHC RDW Plt Count MPV Absolute Neuts (auto) Neutrophils % Lymphocytes % Monocytes % Eosinophils % Basophils % Nucleated RBC % PT with INR INR Sodium 142 Potassium 4.0 Chloride 106 Carbon Dioxide 27 Anion Gap 9 BUN Creatinine 1.1 Creat Clearance w eGFR 51.38 Random Glucose 128 H Calcium 9.0 Phosphorus 4.8 Magnesium 1.7 L Blood Type Antibody Screen NGT+ S1 S2 RRR Lungs clear Oral - moist Abd-- soft, distended, BS not present , dressing noted No edema PLAN NPO iv fluids urine is concentrated will give her bolus fluids keep on maintenance fluids Tylenol IV , Motrin IV replace Magnesium spoke with Surgeon -- plan of care discussed with pt and surgeon Problem List - Problems (1) Abdominal pain Code(s): R10.9 - UNSPECIFIED ABDOMINAL PAIN (2) LLQ abdominal pain Code(s): R10.32 - LEFT LOWER QUADRANT PAIN (3) SBO (small bowel obstruction) Code(s): K56.609 - UNSP INTESTNL OBST, UNSP TO PARTIAL VERSUS COMPLETE OBST
--- NOTE | 2018-03-28 13:56 | PN ---
Progress Note, Physician History of Present Illness: Pt with complete adhesive distal SBO, now s/p PRABHU and short SB resection ( distal ileum) last night. Seen and examined sitting up in chair in room, with Dr. Cloud. Pt is NPO with IVF and NGT, canister with ~250ml clear output. Hernandez with dark yellow urine. Pt reports pain controlled with alternating Tylenol and Ibuprofen (IV), but she feels dry and thirsty. Belching a little, feeling bloated, no gas yet from below. Is still tired from last night, but wants to walk with assistance a little later. - Current Medication List Current Medications: Active Medications Acetaminophen (Ofirmev Injection -) 1,000 mg IVPB Q6H [facility] Stop: 03/31/18 12:30 Last Admin: 03/28/18 12:04 Dose: 1,000 mg Enoxaparin Sodium (Lovenox -) 40 mg SQ DAILY [facility] Last Admin: 03/28/18 09:23 Dose: 40 mg Potassium Chloride/Dextrose/Sod Cl (D5-1/2ns+20 Meq Kcl -) 20 meq in 1,000 mls @ 125 mls/hr IV ASDIR [facility] Last Admin: 03/28/18 04:01 Dose: 125 mls/hr Ibuprofen (Caldolor Injection -) 600 mg IVPB Q6H [facility] Last Admin: 03/28/18 08:58 Dose: 600 mg Morphine Sulfate (Morphine Sulfate) 2 mg IVPUSH Q3H PRN PRN Reason: Pain Level 5-7 BREAKTHROUGH Morphine Sulfate (Morphine Sulfate) 4 mg IVPUSH Q3H PRN PRN Reason: Pain Level 8 - 10 BREAKTHROUGH Ondansetron HCl (Zofran Injection) 4 mg IVPUSH Q6H PRN PRN Reason: NAUSEA AND/OR VOMITING Pantoprazole Sodium (Protonix Iv) 40 mg IVPUSH DAILY [facility] Last Admin: 03/28/18 09:23 Dose: 40 mg Phenol/Menthol (Chloraseptic -) 1 spray MM Q4H PRN PRN Reason: SORE THROAT Sodium Chloride (Normal Saline -) 1,000 ml IV ONCE ONE Stop: 03/28/18 13:36 - Objective Vital Signs: Vital Signs Temperature 97.9 F 03/28/18 10:00 Pulse Rate 104 H 03/28/18 10:00 Respiratory Rate 20 03/28/18 10:00 Blood Pressure 97/60 03/28/18 10:00 O2 Sat by Pulse Oximetry (%) 97 03/28/18 09:00 Constitutional: Yes: Well Nourished, No Distress, Calm Eyes: Yes: Conjunctiva Clear, EOM Intact HENT: Yes: Atraumatic, Normocephalic, Other (NG in place, withdrawn ~5cm and resecured with good sumping/suction) Gastrointestinal: Yes: Soft, Distention, Hypoactive Bowel Sounds (very minimal to none), Tenderness (mostly incisional now). No: Tenderness, Epigastrium, Tenderness, Rebound Extremities: No: Cool, Cyanosis Integumentary: Yes: Incision (lower midline, dressed). No: Jaundice, Rash Wound/Incision: Yes: Dressing Dry and Intact (lower midline c/d/i). No: Dressing Removed Neurological: Yes: Alert, Oriented Labs: CBC, BMP 03/28/18 06:30 03/28/18 06:30 Mg 1.7 - ....Imaging Chest X-ray: Image Reviewed X-ray: Report Reviewed, Image Reviewed (CXR and AXR from this am reviewed - a little contrast now in colon, NGT in stomach but tip angled upwards) Problem List - Problems (1) Intestinal adhesions with complete obstruction Assessment/Plan: complete SBO, secondary to adhesions from hysterectomy POD 1 s/p distal small bowel resection, lysis of adhesions pain controlled antibiotics completed overnight OOB and willing to ambulate NGT to stay until bowel function resumes and distention resolves NPO/IVF urine dark, pt clinically dry - will give bolus of IV fluid continue maintenance fluids replete lytes prn await bowel function overall doing well discussed with Dr. Cloud, primary Code(s): K56.52 - INTESTINAL ADHESIONS [BANDS] WITH COMPLETE OBSTRUCTION (2) LLQ abdominal pain Assessment/Plan: better Code(s): R10.32 - LEFT LOWER QUADRANT PAIN (3) Abdominal distention Code(s): R14.0 - ABDOMINAL DISTENSION (GASEOUS) (4) Vomiting alone Assessment/Plan: resolved Code(s): R11.11 - VOMITING WITHOUT NAUSEA Qualifiers: Vomiting type: bilious vomiting Qualified Code(s): R11.14 - Bilious vomiting
[2018-03-28] MEDS ORDERED: SODIUM CHLORIDE 1,000 ML IV ONE (15:30)
--- NOTE | 2018-03-28 15:38 | PN ---
GI Progress Note Subjective: POD 1, PRABHU and segment if ileum resected Abdominal pain controlled with IV tylenol per patient No BM / Flatus Complains of throat pain - Objective Vital Signs: Vital Signs Temperature 97.9 F 03/28/18 14:00 Pulse Rate 95 H 03/28/18 14:00 Respiratory Rate 17 03/28/18 14:00 Blood Pressure 94/62 03/28/18 14:00 O2 Sat by Pulse Oximetry (%) 97 03/28/18 09:00 Constitutional: Calm Eyes: No: Sclera Icterus Cardiovascular: Yes: Regular Rate and Rhythm Respiratory: Yes: Diminished (at bases b/l with poor insp effort) Gastrointestinal Inspection: Yes: Distention (protuberant), Other (dressing in lower abdomen) ...Auscultate: Yes: Hypoactive Bowel Sounds ...Palpate: Yes: Tenderness (at surgical site dressing) ...Percussion: No: Tympanitic Edema: No (No LE edema) Neurological: Yes: Alert Labs: CBC, BMP 03/28/18 06:30 03/28/18 06:30 INR, PTT INR 1.15 (0.83-1.09) H 03/27/18 16:30 Problem List - Problems (1) SBO (small bowel obstruction) Assessment/Plan: POD 1: Awaiting return of bowel function Adjusted suction to low-med Incentive spirometry Encouraged ambulation as tolerated Post op care per surgery IV hydration per PMD Code(s): K56.609 - UNSP INTESTNL OBST, UNSP TO PARTIAL VERSUS COMPLETE OBST
[2018-03-29] MEDS: ACETAMINOPHEN 1000 MG/100 ML VIAL (NON FORMULARY) IVPB SCH ×4 (00:19→17:41)
[2018-03-29] MEDS: D5-1/2NS+20 MEQ KCL - 20 MEQ/1,000 ML INFUS.BAG IV SCH ×2 (00:20→21:27)
[2018-03-29] MEDS: IBUPROFEN 800 MG/8 ML IJ IVPB SCH ×4 (02:17→21:27)
[2018-03-29] MEDS: BENZOCAINE/MENTH/CETYLPYRD CL 1 EACH LOZENGE MM PRN (02:30)
[2018-03-29 08:02] LABS: HEMATOCRIT 37.7 % (32.4-45.2); HEMOGLOBIN 12.6 GM/dL (10.7-15.3); MCH 29.4 pg (25.7-33.7); MCHC 33.5 g/dl (32.0-36.0); MEAN CELL VOLUME 87.9 fl (80-96); PLATELET COUNT 190 K/MM3 (134-434); RBC 4.29 M/mm3 (3.60-5.2); RDW 12.9 % (11.6-15.6); WHITE BLOOD COUNT 8.2 K/mm3 (4.0-10.0)
[2018-03-29 08:35] LABS: ANION GAP 6 MMOL/L (8-16); BLOOD UREA NITROGEN 20 mg/dL (7-18); CALCIUM 8.5 mg/dL (8.5-10.1); CHLORIDE 110 mmol/L (98-107); CO2 26 mmol/L (21-32); CREATININE 1.2 mg/dL (0.55-1.3); GLUCOSE,RANDOM 95 mg/dL (74-106); MAGNESIUM 2.3 mg/dL (1.8-2.4); POTASSIUM 4.1 mmol/L (3.5-5.1); SODIUM 142 mmol/L (136-145)
[2018-03-29] MEDS: PANTOPRAZOLE SODIUM 40 MG VIAL IVPUSH SCH (09:45)
[2018-03-29] MEDS: ENOXAPARIN NA (PORCINE) 40 MG/0.4 ML DISP.SYRIN SQ SCH (09:45)
--- NOTE | 2018-03-29 11:57 | PN ---
Progress Note (short form) - Note Progress Note: POD #2- small bowel resection had one loose bm last night and today morning no increased abd pain she has better urine output Vital Signs - 24 hr 03/28/18 03/28/18 03/28/18 14:00 20:43 21:00 Temperature 97.9 F 99.1 F Pulse Rate 95 H 85 Respiratory 17 19 Rate Blood Pressure 94/62 121/73 O2 Sat by Pulse 97 Oximetry (%) 03/29/18 03/29/18 02:00 05:56 Temperature 98.4 F 98.6 F Pulse Rate 71 72 Respiratory 18 18 Rate Blood Pressure 122/77 135/88 O2 Sat by Pulse Oximetry (%) Current Medications Generic Name Dose Route Start Last Admin Trade Name Freq PRN Reason Stop Dose Admin Acetaminophen 1,000 mg 03/28/18 00:00 03/29/18 06:28 Ofirmev Injection - IVPB 03/31/18 12:30 1,000 mg Q6H GWEN Administration Benzocaine/Menthol 1 each 03/29/18 03:14 03/29/18 02:30 Cepacol Lozenge - MM 1 each PRN PRN Administration SORE THROAT Enoxaparin Sodium 40 mg 03/28/18 10:00 03/29/18 09:45 Lovenox - SQ 40 mg DAILY GWEN Administration Potassium Chloride/Dextrose/Sod Cl 20 meq in 1,000 mls @ 125 mls/hr 03/27/18 23:28 03/29/18 00:20 D5-1/2ns+20 Meq Kcl - IV 125 mls/hr ASDIR GWEN Administration Ibuprofen 600 mg 03/28/18 03:00 03/29/18 09:45 Caldolor Injection - IVPB 600 mg Q6H GWEN Administration Morphine Sulfate 2 mg 03/27/18 23:28 Morphine Sulfate IVPUSH Q3H PRN Pain Level 5-7 BREAKTHROUGH Morphine Sulfate 4 mg 03/27/18 23:28 Morphine Sulfate IVPUSH Q3H PRN Pain Level 8 - 10 BREAKTHROUGH Ondansetron HCl 4 mg 03/27/18 23:28 Zofran Injection IVPUSH Q6H PRN NAUSEA AND/OR VOMITING Pantoprazole Sodium 40 mg 03/28/18 10:00 03/29/18 09:45 Protonix Iv IVPUSH 40 mg DAILY [facility]EN Administration Phenol/Menthol 1 spray 03/27/18 23:28 Chloraseptic - MM Q4H PRN SORE THROAT Laboratory Results - last 24 hr 03/29/18 03/29/18 07:00 07:00 WBC 8.2 RBC 4.29 Hgb 12.6 Hct 37.7 MCV 87.9 MCH 29.4 MCHC 33.5 RDW 12.9 Plt Count 190 MPV 9.0 Sodium 142 Potassium 4.1 Chloride 110 H Carbon Dioxide 26 Anion Gap 6 L BUN 20 H Creatinine 1.2 Creat Clearance w eGFR 46.47 Random Glucose 95 Calcium 8.5 Magnesium 2.3 NGT+ S1 S2 RRR Lungs clear Oral - moist Abd-- soft, distended, BS +mild , dressing noted No edema PLAN POD #2 NPO iv fluids has better urine output lytes normal keep on maintenance fluids Tylenol IV , Motrin IV spoke with Surgeon -- plan of care discussed with pt and surgeon [place] [facility] for DVT prophylaxis Problem List - Problems (1) Abdominal pain Code(s): R10.9 - UNSPECIFIED ABDOMINAL PAIN (2) LLQ abdominal pain Code(s): R10.32 - LEFT LOWER QUADRANT PAIN (3) SBO (small bowel obstruction) Code(s): K56.609 - UNSP INTESTNL OBST, UNSP TO PARTIAL VERSUS COMPLETE OBST
--- NOTE | 2018-03-29 14:33 | PATH ---
Surgical Pathology Report Patient Name: YFN CASTRO [facility]. Rec. #: [id number] /Age/Gender: 1960 (Age: 58) / F Account: [id number] Location: [address] [place] [address] Taken: 03/27/2018 Received: 03/28/2018 Reported: 03/29/2018 Physicians: Akanksha Quiroz M.D. Specimen(s) Received PORTION OF ILEUM Clinical History Small bowel obstruction (adhesive) Final Diagnosis PORTION OF ILEUM, RESECTION: PORTION OF SMALL BOWEL WITH FOCAL MUCOSAL ISCHEMIC CHANGES, DENSE FIBROUS ADHESIONS, AND HEMORRHAGE. SURGICAL MARGINS ARE VIABLE. Electronically Signed Anat Fisher M.D. Gross Description Received in formalin labeled "portion of ileum," is an 8.5 cm in length portion of small bowel which is stapled the mucosal margins and minimal attached fat. The serosa is vo-camp with focal adhesions. The mucosa is vo with normal folds. No mucosal masses are identified. Separately received within the same container is a 2.2 x 1.0 x 0.6 cm fragment of small bowel with arjun and suture material. Event Promoter sections are submitted in 8 cassettes as follows: 4-0-[id number] stapled mucosal margins; 6-9-tabphpmh of bowel with serosal adhesions; 7-uninvolved patient financial representative small bowel; 8-separately received bowel fragment. /03/28/2018 [facility]
[2018-03-29] MEDS ORDERED: MORPHINE SULFATE 2 MG/ML VIAL IVPUSH PRN (15:22)
--- NOTE | 2018-03-29 15:28 | PN ---
Progress Note, Physician History of Present Illness: Pt with complete adhesive distal SBO, now s/p PRABHU and short SB resection ( distal ileum). Seen sitting up in chair in room, and examined in bed. Pt is NPO with IVF and NGT, canister with ~700ml total brownish output. Hernandez out, pt has voided, reports produce wrapper and more frequent but not quite normal yet. Pt reports pain controlled with alternating Tylenol and Ibuprofen (IV), has not needed any morphine. Belching a little, passed a little gas with several loose BMs today. Abdomen still distended, but not as much so. She has been ambulating in halls. NG was clamped about 45 mins ago, no nausea. Using incentive spirometer. - Current Medication List Current Medications: Active Medications Acetaminophen (Ofirmev Injection -) 1,000 mg IVPB Q6H [facility] Stop: 03/31/18 12:30 Last Admin: 03/29/18 12:54 Dose: 1,000 mg Benzocaine/Menthol (Cepacol Lozenge -) 1 each MM PRN PRN PRN Reason: SORE THROAT Last Admin: 03/29/18 02:30 Dose: 1 each Enoxaparin Sodium (Lovenox -) 40 mg SQ DAILY [facility] Last Admin: 03/29/18 09:45 Dose: 40 mg Potassium Chloride/Dextrose/Sod Cl (D5-1/2ns+20 Meq Kcl -) 20 meq in 1,000 mls @ 125 mls/hr IV ASDIR [facility] Last Admin: 03/29/18 00:20 Dose: 125 mls/hr Ibuprofen (Caldolor Injection -) 600 mg IVPB Q6H [facility] Last Admin: 03/29/18 15:21 Dose: 600 mg Morphine Sulfate (Morphine Sulfate) 2 mg IVPUSH Q3H PRN PRN Reason: Pain Level 5-7 BREAKTHROUGH Ondansetron HCl (Zofran Injection) 4 mg IVPUSH Q6H PRN PRN Reason: NAUSEA AND/OR VOMITING Pantoprazole Sodium (Protonix Iv) 40 mg IVPUSH DAILY [facility] Last Admin: 03/29/18 09:45 Dose: 40 mg Phenol/Menthol (Chloraseptic -) 1 spray MM Q4H PRN PRN Reason: SORE THROAT - Objective Vital Signs: Vital Signs Temperature 98.3 F 03/29/18 14:00 Pulse Rate 63 03/29/18 14:00 Respiratory Rate 21 H 03/29/18 14:00 Blood Pressure 115/65 03/29/18 14:00 O2 Sat by Pulse Oximetry (%) 96 03/29/18 09:00 Constitutional: Yes: Well Nourished, No Distress, Calm Eyes: Yes: Conjunctiva Clear, EOM Intact HENT: Yes: Atraumatic, Normocephalic, Other (NG in place, clamped) Gastrointestinal: Yes: Soft, Distention (less so but still moderate with tympany ), Hypoactive Bowel Sounds (scant), Tenderness (mild incisional, mild RLQ). No : Tenderness, Rebound, Vomiting Genitourinary: No: Hernandez Present, Incontinence Extremities: No: Cool, Cyanosis Integumentary: Yes: Incision (lower midline dressed). No: Jaundice, Rash Wound/Incision: Yes: Clean/Dry, Well Approximated, Drew Intact (lower midline ), Dressing Dry and Intact, Dressing Removed. No: Reddened Neurological: Yes: Alert, Oriented. No: Unsteady Gait Labs: CBC, BMP 03/29/18 07:00 03/29/18 07:00 Problem List - Problems (1) Intestinal adhesions with complete obstruction Assessment/Plan: complete SBO, secondary to adhesions from hysterectomy POD 2 s/p distal small bowel resection, lysis of adhesions pain controlled OOB and ambulating, in chair frequently + bowel function but no bowel sounds NPO/IVF but may have ice chips or gum to chew NGT clamped until distention improves further and bowel sounds return may be able to remove sometime tomorrow - would then wait a few hours and start clears, advance slowly after that Hernandez out, voiding continue maintenance fluids until tolerating clear liquids replete lytes prn - Mg normal today overall doing well when NG out and clears tolerated, would change pain meds to scheduled Tylenol 650mg q6H and ibuprofen 400mg q6H, alternating, given only while awake should not need Rx on discharge instructions in d/c plan discussed status and plan with Dr. Tatiana Mckeon will be covering for me until TuesdayApr 03 Code(s): K56.52 - INTESTINAL ADHESIONS [BANDS] WITH COMPLETE OBSTRUCTION (2) LLQ abdominal pain Assessment/Plan: resolved Code(s): R10.32 - LEFT LOWER QUADRANT PAIN (3) Abdominal distention Assessment/Plan: less but still present Code(s): R14.0 - ABDOMINAL DISTENSION (GASEOUS)
--- NOTE | 2018-03-29 15:44 | PN ---
Progress Note, Physician History of Present Illness: Pt seen/examined at bedside, sitting in chair, feels better, NG in place was on intermittent suction on my evaluation. Abdominal pain improved and moved bowels this am. - Current Medication List Current Medications: Active Medications Acetaminophen (Ofirmev Injection -) 1,000 mg IVPB Q6H [facility] Stop: 03/31/18 12:30 Last Admin: 03/29/18 12:54 Dose: 1,000 mg Benzocaine/Menthol (Cepacol Lozenge -) 1 each MM PRN PRN PRN Reason: SORE THROAT Last Admin: 03/29/18 02:30 Dose: 1 each Enoxaparin Sodium (Lovenox -) 40 mg SQ DAILY [facility] Last Admin: 03/29/18 09:45 Dose: 40 mg Potassium Chloride/Dextrose/Sod Cl (D5-1/2ns+20 Meq Kcl -) 20 meq in 1,000 mls @ 125 mls/hr IV ASDIR [facility] Last Admin: 03/29/18 00:20 Dose: 125 mls/hr Ibuprofen (Caldolor Injection -) 600 mg IVPB Q6H [facility] Last Admin: 03/29/18 15:21 Dose: 600 mg Morphine Sulfate (Morphine Sulfate) 2 mg IVPUSH Q3H PRN PRN Reason: Pain Level 8 - 10 BREAKTHROUGH Ondansetron HCl (Zofran Injection) 4 mg IVPUSH Q6H PRN PRN Reason: NAUSEA AND/OR VOMITING Pantoprazole Sodium (Protonix Iv) 40 mg IVPUSH DAILY [facility] Last Admin: 03/29/18 09:45 Dose: 40 mg Phenol/Menthol (Chloraseptic -) 1 spray MM Q4H PRN PRN Reason: SORE THROAT - Objective Vital Signs: Vital Signs Temperature 98.3 F 03/29/18 14:00 Pulse Rate 63 03/29/18 14:00 Respiratory Rate 21 H 03/29/18 14:00 Blood Pressure 115/65 03/29/18 14:00 O2 Sat by Pulse Oximetry (%) 96 03/29/18 09:00 Constitutional: Yes: Well Nourished, No Distress, Calm Cardiovascular: Yes: WNL, Regular Rate and Rhythm Respiratory: Yes: WNL, Regular, CTA Bilaterally Gastrointestinal: Yes: WNL, Normal Bowel Sounds, Soft, Other (Abd softly distended, mildly tender on palpation mostly at incisional sites) Labs: CBC, BMP 03/29/18 07:00 03/29/18 07:00 INR, PTT INR 1.15 (0.83-1.09) H 03/27/18 16:30 Problem List - Problems (1) SBO (small bowel obstruction) Assessment/Plan: 58yo female with small bowel obstruction s/p distal smal bowel resection and PRABHU , POD #2. Clinically improving, moving bowels. NG remains in place. -Continue IVF, NPO for now -NG clamping/DC timing per surgery -Encourage OOB/ambulation as tolerated -Monitor and replace electrolytes -Further management per primary team and surgery Code(s): K56.609 - UNSP INTESTNL OBST, UNSP TO PARTIAL VERSUS COMPLETE OBST
[2018-03-30] MEDS: ACETAMINOPHEN 1000 MG/100 ML VIAL (NON FORMULARY) IVPB SCH ×5 (00:22→18:45)
[2018-03-30] MEDS: IBUPROFEN 800 MG/8 ML IJ IVPB SCH ×3 (02:32→15:00)
[2018-03-30 08:40] LABS: HEMATOCRIT 36.5 % (32.4-45.2); HEMOGLOBIN 12.2 GM/dL (10.7-15.3); MCH 29.5 pg (25.7-33.7); MCHC 33.5 g/dl (32.0-36.0); MEAN CELL VOLUME 88.2 fl (80-96); PLATELET COUNT 199 K/MM3 (134-434); RBC 4.13 M/mm3 (3.60-5.2); WHITE BLOOD COUNT 5.9 K/mm3 (4.0-10.0)
[2018-03-30 08:56] LABS: ALK PHOS 73 U/L (45-117); ANION GAP 5 MMOL/L (8-16); BILIRUBIN,TOTAL 0.5 mg/dL (0.2-1); BLOOD UREA NITROGEN 17 mg/dL (7-18); CALCIUM 8.7 mg/dL (8.5-10.1); CHLORIDE 109 mmol/L (98-107); CO2 25 mmol/L (21-32); CREATININE 1.1 mg/dL (0.55-1.3); GLUCOSE,RANDOM 81 mg/dL (74-106); MAGNESIUM 2.5 mg/dL (1.8-2.4); POTASSIUM 3.9 mmol/L (3.5-5.1); SGOT/AST 24 U/L (15-37); SGPT/ALT 15 U/L (13-61); SODIUM 139 mmol/L (136-145); TOT PROT 6.4 g/dl (6.4-8.2)
[2018-03-30] MEDS: ENOXAPARIN NA (PORCINE) 40 MG/0.4 ML DISP.SYRIN SQ SCH (09:38)
[2018-03-30] MEDS: PANTOPRAZOLE SODIUM 40 MG VIAL IVPUSH SCH (09:39)
[2018-03-30] MEDS: BENZOCAINE/MENTH/CETYLPYRD CL 1 EACH LOZENGE MM PRN (09:43)
[2018-03-30] MEDS: D5-1/2NS+20 MEQ KCL - 20 MEQ/1,000 ML INFUS.BAG IV SCH (10:33)
--- NOTE | 2018-03-30 12:12 | PN ---
Progress Note (short form) - Note Progress Note: POD #3- small bowel resection , lysis of adhesions had loose bm last night and today morning no increased abd pain she has better urine output NG removed today morning she feels better Vital Signs - 24 hr 03/29/18 03/29/18 03/30/18 14:00 18:00 06:00 Temperature 98.3 F 98.7 F 98.4 F Pulse Rate 63 74 72 Respiratory 21 H 20 Rate Blood Pressure 115/65 136/74 135/77 O2 Sat by Pulse Oximetry (%) 03/30/18 03/30/18 08:22 10:00 Temperature 97.9 F Pulse Rate 61 Respiratory 20 Rate Blood Pressure 134/74 O2 Sat by Pulse 94 L Oximetry (%) Current Medications Generic Name Dose Route Start Last Admin Trade Name Freq PRN Reason Stop Dose Admin Acetaminophen 1,000 mg 03/28/18 00:00 03/30/18 06:26 Ofirmev Injection - IVPB 03/31/18 12:30 1,000 mg Q6H [facility] Administration Benzocaine/Menthol 1 each 03/29/18 03:14 03/30/18 09:43 Cepacol Lozenge - MM 1 each PRN PRN Administration SORE THROAT Enoxaparin Sodium 40 mg 03/28/18 10:00 03/30/18 09:38 Lovenox - SQ 40 mg DAILY [facility] Administration Potassium Chloride/Dextrose/Sod Cl 20 meq in 1,000 mls @ 125 mls/hr 03/27/18 23:28 03/29/18 21:27 D5-1/2ns+20 Meq Kcl - IV 125 mls/hr ASDIR [facility] Administration Ibuprofen 600 mg 03/28/18 03:00 03/30/18 09:39 Caldolor Injection - IVPB 600 mg Q6H [facility] Administration Morphine Sulfate 2 mg 03/29/18 15:22 Morphine Sulfate IVPUSH Q3H PRN Pain Level 8 - 10 BREAKTHROUGH Ondansetron HCl 4 mg 03/27/18 23:28 Zofran Injection IVPUSH Q6H PRN NAUSEA AND/OR VOMITING Pantoprazole Sodium 40 mg 03/28/18 10:00 03/30/18 09:39 Protonix Iv IVPUSH 40 mg DAILY [facility] Administration Phenol/Menthol 1 spray 03/27/18 23:28 Chloraseptic - MM Q4H PRN SORE THROAT Laboratory Results - last 24 hr 03/29/18 03/30/18 03/30/18 07:00 07:25 07:25 WBC 5.9 RBC 4.13 Hgb 12.2 Hct 36.5 MCV 88.2 MCH 29.5 MCHC 33.5 RDW 13.0 Plt Count 199 MPV 9.0 Sodium 139 Potassium 3.9 Chloride 109 H Carbon Dioxide 25 Anion Gap 5 L BUN 17 Creatinine 1.1 Creat Clearance w eGFR 51.38 Random Glucose 81 Calcium 8.7 Magnesium 2.5 H Total Bilirubin 0.5 AST 24 ALT 15 Alkaline Phosphatase 73 Total Protein 6.4 Albumin 3.0 L Blood Type O POSITIVE NGT+ S1 S2 RRR Lungs clear Oral - moist Abd-- soft, distended, BS +very few , dressing noted No edema PLAN POD #3 NPO for now may have ice chips/hard candy/chew gum per Dr bruce Mckeon will be in to see her today and will decide on starting clears or not iv fluids has better urine output lytes normal keep on maintenance fluids Tylenol IV , Motrin IV plan of care as outlined in DR barrera's notes Lovenox sc for DVT prophylaxis OOB daily Problem List - Problems (1) Abdominal pain Code(s): R10.9 - UNSPECIFIED ABDOMINAL PAIN (2) LLQ abdominal pain Code(s): R10.32 - LEFT LOWER QUADRANT PAIN (3) SBO (small bowel obstruction) Code(s): K56.609 - UNSP INTESTNL OBST, UNSP TO PARTIAL VERSUS COMPLETE OBST
--- NOTE | 2018-03-30 18:17 | PN ---
Progress Note, Physician Chief Complaint: s/o SB resection for SBO History of Present Illness: 58yo female PMH herniated disc, heart murmur, s/p hysterectomy 2011 (lap converted to open), was admitted last week with abdominal distention, crampy LLQ pain and vomiting without nausea. She initially had symptoms start Tuesday after work, with LLQ pain. She has been stable postoperatively. - Current Medication List Current Medications: Active Medications Acetaminophen (Ofirmev Injection -) 1,000 mg IVPB Q6H [facility] Stop: 03/31/18 12:30 Last Admin: 03/30/18 12:34 Dose: 1,000 mg Benzocaine/Menthol (Cepacol Lozenge -) 1 each MM PRN PRN PRN Reason: SORE THROAT Last Admin: 03/30/18 09:43 Dose: 1 each Enoxaparin Sodium (Lovenox -) 40 mg SQ DAILY [facility] Last Admin: 03/30/18 09:38 Dose: 40 mg Potassium Chloride/Dextrose/Sod Cl (D5-1/2ns+20 Meq Kcl -) 20 meq in 1,000 mls @ 125 mls/hr IV ASDIR [facility] Last Admin: 03/30/18 10:33 Dose: 125 mls/hr Ibuprofen (Caldolor Injection -) 600 mg IVPB Q6H [facility] Last Admin: 03/30/18 15:00 Dose: Not Given Morphine Sulfate (Morphine Sulfate) 2 mg IVPUSH Q3H PRN PRN Reason: Pain Level 8 - 10 BREAKTHROUGH Ondansetron HCl (Zofran Injection) 4 mg IVPUSH Q6H PRN PRN Reason: NAUSEA AND/OR VOMITING Pantoprazole Sodium (Protonix Iv) 40 mg IVPUSH DAILY [facility] Last Admin: 03/30/18 09:39 Dose: 40 mg Phenol/Menthol (Chloraseptic -) 1 spray MM Q4H PRN PRN Reason: SORE THROAT - Objective Vital Signs: Vital Signs Temperature 98.1 F 03/30/18 13:27 Pulse Rate 56 L 03/30/18 13:27 Respiratory Rate 17 03/30/18 13:27 Blood Pressure 132/71 03/30/18 13:27 O2 Sat by Pulse Oximetry (%) 94 L 03/30/18 08:22 Vital Signs Period Temp Pulse Resp BP Sys/Costa Pulse Ox Last 24 Hr 97.9 F-98.4 F 56-72 17-20 132-135/71-77 94 Constitutional: Yes: Well Nourished, No Distress, Calm Eyes: Yes: Conjunctiva Clear, EOM Intact HENT: Yes: Atraumatic, Normocephalic Neck: Yes: Supple, Trachea Midline Cardiovascular: Yes: Regular Rate and Rhythm, S1, S2 Respiratory: Yes: Regular, CTA Bilaterally Gastrointestinal: Yes: Soft, Abdomen, Obese, Distention, Hyperactive Bowel Sounds, Tenderness. No: Ascites, Tenderness, Epigastrium, Tenderness, Rebound ...Rectal Exam: Yes: Deferred Genitourinary: No: CVA Tenderness - Left, CVA Tenderness - Right Breast(s): No: Gynecomastia Musculoskeletal: No: Joint Swelling, Muscle Weakness Extremities: No: Cool, Cyanosis Edema: Yes Edema: LLE: 1+, RLE: 1+ Peripheral Pulses WNL: Yes Peripheral Pulses: Left Radial: 2+, Right Radial: 2+, Left Doralis Pedis: 2+, Right Dorsalis Pedis: 2+, Left Femoral: 2+, Right Femoral: 2+ Wound/Incision: Yes: Clean/Dry, Well Approximated, Drew Intact, Open to air. No: Reddened, Bleeding, Excoriated Neurological: Yes: Alert, Oriented Psychiatric: Yes: Alert, Oriented Labs: CBC, BMP 03/30/18 07:25 03/30/18 07:25 INR, PTT INR 1.15 (0.83-1.09) H 03/27/18 16:30 Problem List - Problems (1) SBO (small bowel obstruction) Assessment/Plan: Complete SBO, secondary to adhesions from hysterectomy POD#3 s/p distal small bowel resection, lysis of adhesions, had BM and flatus OOB/ ambulate Discontinue NGT encosurge Incentive spirometer Advance to clear liquid diet on 03/30 discharge when tolerating will follow Dr. Lucas returning 04/03 Code(s): K56.609 - UNSP INTESTNL OBST, UNSP TO PARTIAL VERSUS COMPLETE OBST (2) Intestinal adhesions with complete obstruction Code(s): K56.52 - INTESTINAL ADHESIONS [BANDS] WITH COMPLETE OBSTRUCTION (3) LLQ abdominal pain Code(s): R10.32 - LEFT LOWER QUADRANT PAIN (4) Vomiting Code(s): R11.10 - VOMITING, UNSPECIFIED Qualifiers: Vomiting type: cyclical vomiting Vomiting Intractability: intractable Nausea presence: with nausea Qualified Code(s): G43.A1 - Cyclical vomiting, intractable
[2018-03-30] MEDS ORDERED: POTASSIUM CHLORIDE TABS 20 MEQ TABLET.ER (FP) PO ONE (18:53)
[2018-03-30] MEDS: IBUPROFEN 600 MG TABLET (FP) PO PRN (21:08)
[2018-03-31] MEDS: ACETAMINOPHEN 325 MG TABLET (FP) PO PRN ×2 (02:01→16:10)
[2018-03-31] MEDS: IBUPROFEN 600 MG TABLET (FP) PO PRN ×3 (06:43→22:42)
[2018-03-31 07:44] LABS: BASO % 0.2 % (0-2.0); EOS % 0.9 % (0-4.5); HEMATOCRIT 37.5 % (32.4-45.2); HEMOGLOBIN 12.6 GM/dL (10.7-15.3); LYMPH % 14.1 % (8-40); MCH 29.7 pg (25.7-33.7); MCHC 33.7 g/dl (32.0-36.0); MEAN CELL VOLUME 88.1 fl (80-96); MEAN PLT VOLUME 9.1 fl (7.5-11.1); NEUT % 78.8 % (42.8-82.8); PLATELET COUNT 244 K/MM3 (134-434); RBC 4.25 M/mm3 (3.60-5.2); RDW 13.1 % (11.6-15.6); WHITE BLOOD COUNT 6.9 K/mm3 (4.0-10.0)
[2018-03-31 08:43] LABS: ALK PHOS 79 U/L (45-117); ANION GAP 11 MMOL/L (8-16); BILIRUBIN,TOTAL 0.6 mg/dL (0.2-1); BLOOD UREA NITROGEN 15 mg/dL (7-18); CALCIUM 9.2 mg/dL (8.5-10.1); CHLORIDE 110 mmol/L (98-107); CO2 18 mmol/L (21-32); CREATININE 0.9 mg/dL (0.55-1.3); GLUCOSE,RANDOM 68 mg/dL (74-106); MAGNESIUM 2.3 mg/dL (1.8-2.4); POTASSIUM 4.1 mmol/L (3.5-5.1); SGOT/AST 30 U/L (15-37); SGPT/ALT 21 U/L (13-61); SODIUM 139 mmol/L (136-145); TOT PROT 6.4 g/dl (6.4-8.2)
[2018-03-31] MEDS: PANTOPRAZOLE 40 MG TABLET (FP) PO SCH (09:34)
[2018-03-31] MEDS: ENOXAPARIN NA (PORCINE) 40 MG/0.4 ML DISP.SYRIN SQ SCH (09:34)
--- NOTE | 2018-03-31 11:18 | PN ---
Progress Note (short form) - Note Progress Note: pt seen/ examined chart reviewed sitting in chair no distress tolerating clear liquids- small amount afebrile Vital Signs Temp 99.0 F 03/31/18 05:32 Pulse 77 03/31/18 05:32 Resp 18 03/31/18 05:32 BP 146/88 03/31/18 05:32 Pulse Ox 94 L 03/30/18 21:00 Intake & Output 03/30/18 03/30/18 03/31/18 11:59 23:59 11:59 Intake Total 1250 150 350 Balance 1250 150 350 Intake: IV 1250 D5-1/2NS+20 MEQ KCL - 20 1250 meq In 1,000 ml @ 125 mls /hr IV ASDIR [facility] Rx#: [id number] IVPB 150 Oral 0 350 Other: Voiding Method Toilet Toilet # Unmeasured Voids Void 3 3 Bowel Movement No Yes # Bowel Movements 1 Active Medications Acetaminophen (Tylenol -) 650 mg PO Q6H PRN PRN Reason: PAIN LEVEL 1-5 Last Admin: 03/31/18 02:01 Dose: 650 mg Benzocaine/Menthol (Cepacol Lozenge -) 1 each MM PRN PRN PRN Reason: SORE THROAT Last Admin: 03/30/18 09:43 Dose: 1 each Enoxaparin Sodium (Lovenox -) 40 mg SQ DAILY [facility] Last Admin: 03/31/18 09:34 Dose: 40 mg Ibuprofen (Motrin -) 600 mg PO Q6H PRN PRN Reason: PAIN LEVEL 1-5 Last Admin: 03/31/18 06:43 Dose: 600 mg Pantoprazole Sodium (Protonix -) 40 mg PO DAILY [facility] Last Admin: 03/31/18 09:34 Dose: 40 mg Phenol/Menthol (Chloraseptic -) 1 spray MM Q4H PRN PRN Reason: SORE THROAT CBC, BMP 03/31/18 07:00 03/31/18 07:00 Physical Exam . S1 S2 RRR Lungs clear Oral - moist Abd-- soft, distended, BS + PLAN POD #4 clear liquids advance as tolerated iv fluids incentive spirometry ambulate OOB daily if stable - anticipate d/c in am will follow discussed with nursing staff Problem List - Problems (1) SBO (small bowel obstruction) Code(s): K56.609 - UNSP INTESTNL OBST, UNSP TO PARTIAL VERSUS COMPLETE OBST
--- NOTE | 2018-03-31 12:10 | PN ---
Progress Note, Physician Chief Complaint: s/o SB resection for SBO History of Present Illness: 58yo female PMH herniated disc, heart murmur, s/p hysterectomy 2011 (lap converted to open), was admitted last week with abdominal distention, crampy LLQ pain and vomiting without nausea. She initially had symptoms start Tuesday after work, with LLQ pain. She has been stable postoperatively. - Current Medication List Current Medications: Active Medications Acetaminophen (Tylenol -) 650 mg PO Q6H PRN PRN Reason: PAIN LEVEL 1-5 Last Admin: 03/31/18 02:01 Dose: 650 mg Benzocaine/Menthol (Cepacol Lozenge -) 1 each MM PRN PRN PRN Reason: SORE THROAT Last Admin: 03/30/18 09:43 Dose: 1 each Enoxaparin Sodium (Lovenox -) 40 mg SQ DAILY [facility] Last Admin: 03/31/18 09:34 Dose: 40 mg Ibuprofen (Motrin -) 600 mg PO Q6H PRN PRN Reason: PAIN LEVEL 1-5 Last Admin: 03/31/18 06:43 Dose: 600 mg Pantoprazole Sodium (Protonix -) 40 mg PO DAILY [facility] Last Admin: 03/31/18 09:34 Dose: 40 mg Phenol/Menthol (Chloraseptic -) 1 spray MM Q4H PRN PRN Reason: SORE THROAT - Objective Vital Signs: Vital Signs Temperature 99.0 F 03/31/18 05:32 Pulse Rate 77 03/31/18 05:32 Respiratory Rate 18 03/31/18 05:32 Blood Pressure 146/88 03/31/18 05:32 O2 Sat by Pulse Oximetry (%) 94 L 03/30/18 21:00 Vital Signs Period Temp Pulse Resp BP Sys/Costa Pulse Ox Last 24 Hr 98.1 F-99.0 F 56-77 17-18 132-158/71-90 94 Constitutional: Yes: Well Nourished, No Distress, Calm Eyes: Yes: Conjunctiva Clear, EOM Intact HENT: Yes: Atraumatic, Normocephalic Neck: Yes: Supple, Trachea Midline Cardiovascular: Yes: Regular Rate and Rhythm, S1, S2 Respiratory: Yes: Regular, CTA Bilaterally Gastrointestinal: Yes: Normal Bowel Sounds, Soft, Tenderness (incisonal) ...Rectal Exam: Yes: Deferred Genitourinary: No: CVA Tenderness - Left, CVA Tenderness - Right Breast(s): No: Breast Implants, Gynecomastia Musculoskeletal: No: Muscle Pain, Muscle Weakness Extremities: No: Cool, Cyanosis Edema: No Peripheral Pulses WNL: Yes Peripheral Pulses: Left Radial: 2+, Right Radial: 2+, Left Doralis Pedis: 2+, Right Dorsalis Pedis: 2+, Left Femoral: 2+, Right Femoral: 2+ Integumentary: No: Jaundice, Skin Tear Neurological: Yes: Alert, Oriented Psychiatric: Yes: Alert, Oriented Labs: CBC, BMP 03/31/18 07:00 03/31/18 07:00 INR, PTT INR 1.15 (0.83-1.09) H 03/27/18 16:30 Problem List - Problems (1) SBO (small bowel obstruction) Assessment/Plan: Complete SBO, secondary to adhesions from hysterectomy POD#3 s/p distal small bowel resection, lysis of adhesions, had BM and flatus OOB/ ambulate Discontinue NGT encosurge Incentive spirometer Advance to clear liquid diet discharge when tolerating will follow Dr. Lucas returning 04/03 Code(s): K56.609 - UNSP INTESTNL OBST, UNSP TO PARTIAL VERSUS COMPLETE OBST (2) Intestinal adhesions with complete obstruction Code(s): K56.52 - INTESTINAL ADHESIONS [BANDS] WITH COMPLETE OBSTRUCTION (3) LLQ abdominal pain Code(s): R10.32 - LEFT LOWER QUADRANT PAIN (4) Vomiting Code(s): R11.10 - VOMITING, UNSPECIFIED Qualifiers: Vomiting type: cyclical vomiting Vomiting Intractability: intractable Nausea presence: with nausea Qualified Code(s): G43.A1 - Cyclical vomiting, intractable
[2018-03-31] MEDS ORDERED: morphine CARPU-JECT 4 MG/1 ML DISP.SYRIN IM PRN (16:27)
[2018-03-31] MEDS ORDERED: MORPHINE SULFATE 2 MG/ML VIAL IM PRN (16:30)
[2018-03-31] MEDS: METOCLOPRAMIDE HCL 10 MG TABLET (FP) PO SCH (17:09)
[2018-04-01] MEDS: METOCLOPRAMIDE HCL 10 MG TABLET (FP) PO SCH ×3 (06:08→18:05)
[2018-04-01 08:08] LABS: BASO % 0.1 % (0-2.0); EOS % 0.7 % (0-4.5); HEMATOCRIT 38.8 % (32.4-45.2); MCH 29.7 pg (25.7-33.7); MCHC 33.6 g/dl (32.0-36.0); MEAN CELL VOLUME 88.2 fl (80-96); MEAN PLT VOLUME 8.5 fl (7.5-11.1); MONO % 9.6 % (3.8-10.2); NEUT % 78.6 % (42.8-82.8); PLATELET COUNT 281 K/MM3 (134-434); RDW 12.7 % (11.6-15.6); WHITE BLOOD COUNT 7.2 K/mm3 (4.0-10.0)
[2018-04-01 08:37] LABS: ALBUMIN 3.1 g/dl (3.4-5.0); ALK PHOS 88 U/L (45-117); ANION GAP 9 MMOL/L (8-16); BILIRUBIN,TOTAL 0.5 mg/dL (0.2-1); BLOOD UREA NITROGEN 17 mg/dL (7-18); CALCIUM 9.3 mg/dL (8.5-10.1); CHLORIDE 105 mmol/L (98-107); CO2 24 mmol/L (21-32); CREATININE 1.2 mg/dL (0.55-1.3); GLUCOSE,RANDOM 99 mg/dL (74-106); MAGNESIUM 1.9 mg/dL (1.8-2.4); POTASSIUM 4.2 mmol/L (3.5-5.1); SGOT/AST 48 U/L (15-37); SGPT/ALT 40 U/L (13-61); SODIUM 138 mmol/L (136-145); TOT PROT 6.5 g/dl (6.4-8.2)
[2018-04-01] MEDS: ACETAMINOPHEN 325 MG TABLET (FP) PO PRN (09:29)
[2018-04-01] MEDS: ENOXAPARIN NA (PORCINE) 40 MG/0.4 ML DISP.SYRIN SQ SCH (09:29)
[2018-04-01] MEDS: PANTOPRAZOLE 40 MG TABLET (FP) PO SCH (09:29)
--- NOTE | 2018-04-01 12:42 | DS ---
Physical Examination Vital Signs: Vital Signs Temperature 97.7 F 04/01/18 09:00 Pulse Rate 91 H 04/01/18 09:00 Respiratory Rate 20 04/01/18 09:00 Blood Pressure 115/74 04/01/18 09:00 O2 Sat by Pulse Oximetry (%) 94 L 03/31/18 21:00 Findings/Remarks: awake/ comfortable denies pain tolerating diet having bm Constitutional: Yes: No Distress, Calm Neck: Yes: Supple Cardiovascular: Yes: Regular Rate and Rhythm Respiratory: Yes: CTA Bilaterally Gastrointestinal: Yes: Soft Edema: No Labs: CBC, BMP 04/01/18 07:21 04/01/18 07:21 Discharge Summary Reason For Visit: LEFT LOWER GUADRANT PAIN,VOMITING, SBO Current Active Problems Abdominal distention (Acute) Abdominal pain (Acute) Intestinal adhesions with complete obstruction (Acute) LLQ abdominal pain (Acute) SBO (small bowel obstruction) (Acute) Vomiting (Acute) Vomiting (Acute) Vomiting alone (Acute) Hospital Course: stable Complete SBO, secondary to adhesions from hysterectomy POD#5 s/p distal small bowel resection, lysis of adhesions, stable for d/c meds send to pharmacy diet discussed pt to follow with Dr. Juarez as advised I also advised to follow with her PMD Dr. Alegre in week or so. Pt in agreement. Condition: Stable - Instructions Diet, Activity, Other Instructions: Postoperative instructions: You had a small bowel resection with lysis of adhesions on 03/27/[address] Shai Lucas of [facility]. Activity: Resume your usual activities gradually, but no heavy exertion or lifting more than 10-15 pounds for 4-6 weeks. Remove dressings 48 hours after surgery, if they are not already off. You may shower daily starting then, just pat the incision areas dry. No bath or swimming until skin incisions have healed. [place] should not need to be recovered with any dressings, unless you have been told otherwise. Eat lightly at first, but advance to your usual diet as tolerated. Pain: For pain, you may use and alternate Tylenol (acetaminophen, regular or extra strength) 1-2 pills and/or ibuprofen 200 mg (1-3 pills) every 6 hours each as needed; this means that you can take one OR the other at 3-hour intervals. If you are prescribed a Tylenol/narcotic combination for severe pain , use it instead of plain Tylenol as needed and switch back when your pain starts decreasing. Do not take more than 4000 mg of acetaminophen in a day. Take medications as prescribed or indicated on the labeling. Follow-up: Call Dr. Lucas's office at [phone] to make your postop appointment (Tuesday in approximately 2 weeks after surgery as advised). Clinic is held in the [facility] on the first floor of [facility]. Call the office if you have: * increasing pain not responsive to pain medication * fever of 101F or higher * vomiting * unusual or increasing bleeding or drainage from wounds * increasing redness or swelling at wound sites Also, see your primary medical doctor within 1-2 weeks. Referrals: uLis Perkins MD [Non Staff, Medical] - Shai Lucas MD [Staff Physician] - 2 Weeks (CALL for your appointment) Russel Lee MD [Primary Care Provider] - Disposition: HOME - Home Medications Comprehensive Discharge Medication List: Ambulatory Orders Acetaminophen [Tylenol .Regular Strength -] 650 mg PO Q6H PRN tablet 04/01/18 Ibuprofen [Motrin -] 600 mg PO TID PRN #30 tablet 04/01/18 Metoclopramide HCl [Reglan -] 10 mg PO TIDAC #30 tablet 04/01/18 Pantoprazole Sodium [Protonix -] 40 mg PO DAILY 30 Days #30 tablet.ec 04/01/18 Phenol [Chloraseptic -] 1 spray MM Q4H PRN bottle 04/01/18
[2018-04-01] MEDS: IBUPROFEN 600 MG TABLET (FP) PO PRN (14:36)
[2018-04-01 15:14] VITALS: BP 133/72; PULSE 76; TEMP 98.4
== END 2018-04-01 18:31 | disposition home or self-care (01) | DRG 331 ==
LOC: JER 14:04 → SUPCPDRO 14:04 → JERBED 23:22 → OBSVTOIN 03-21 01:32 → J5S 03-21 03:19 → J6S 03-25 15:38
PROVIDERS: ADMIT Internal Medicine; ATTEND Internal Medicine
PROC: 0DNW0ZZ Release Peritoneum, Open Approach (ICD-10-PCS; 2018-03-27)
PROC: 0DTB0ZZ Resection of Ileum, Open Approach (ICD-10-PCS; principal; 2018-03-27 20:16)
DX: K56.52 Intestinal adhesions [bands] with complete obstruction (principal); R11.10 Vomiting, unspecified; R10.32 Left lower quadrant pain; E86.0 Dehydration; R14.0 Abdominal distension (gaseous)
CPT/HCPCS: 36415; 71045-TC-FY; 71046-TC-FY; 74018-TC-FY; 74019-TC-FY; 74176-TC; 74177-TC; 74251-TC-FY; 80048; 80053; 81003; 81015; 83735; 84100; 84443; 85025; 85027; 85610; 86850; 86900; 86901; 87086; 87804; 88307-TC; 93005; 93010; 94010; 94760; 97116-GP; 97161-GP; 99284-25; G0378; J0131; J7030; Q9967

== ENCOUNTER 2021-10-21 11:25 | Emergency (ER) | payer BC ==
[2021-10-21 12:04] VITALS: RESP 18; BMI 23.6
[2021-10-21] MEDS ORDERED: SODIUM CHLORIDE 500 ML IV STA (13:19)
[2021-10-21 14:19] LABS: BASO % 1.1 % (0-2.0); EOS % 1.8 % (0-4.5); HEMOGLOBIN 14.7 GM/dL (10.7-15.3); LYMPH % 51.2 % (8-40); MCH 29.1 pg (25.7-33.7); MCHC 33.5 g/dl (32.0-36.0); MEAN PLT VOLUME 9.1 fl (7.5-11.1); MONO % 7.9 % (3.8-10.2); PLATELET COUNT 195 10^3/uL (134-434); RBC 5.05 M/mm3 (3.60-5.2); RDW 13.3 % (11.6-15.6); WHITE BLOOD COUNT 2.5 K/mm3 (4.0-10.0)
[2021-10-21 14:36] LABS: CHLORIDE 107 mmol/L (98-107); SODIUM 140 mmol/L (136-145)
[2021-10-21 14:37] LABS: GLUCOSE,RANDOM 96 mg/dL (74-106)
[2021-10-21 14:38] LABS: ALBUMIN 4.5 g/dl (3.4-5.0); ANION GAP 6 MMOL/L (8-16); CALCIUM 10.6 mg/dL (8.5-10.1); CO2 27 mmol/L (21-32); MAGNESIUM 2.6 mg/dL (1.8-2.4)
[2021-10-21 14:41] LABS: SGOT/AST 36 U/L (15-37); SGPT/ALT 35 U/L (13-61)
[2021-10-21 14:44] LABS: ALK PHOS 120 U/L (45-117); TOT PROT 8.6 g/dl (6.4-8.2)
[2021-10-21 14:45] LABS: BILIRUBIN,TOTAL 0.6 mg/dL (0.2-1)
[2021-10-21] MEDS ORDERED: ASPIRIN 325 MG ENTERIC COATED TABLET (FP) PO ONE (15:36)
[2021-10-21] MEDS ORDERED: ASPIRIN 325 MG ENTERIC COATED TABLET (FP) ONE (16:23)
[2021-10-21 17:15] VITALS: BP 161/92; PULSE 57; TEMP 98
== END 2021-10-21 18:22 | disposition left against medical advice (07) ==
LOC: JER 11:25
PROC: 3E0337Z Introduction of Electrolytic and Water Balance Substance into Peripheral Vein, Percutaneous Approach (ICD-10-PCS; principal; 2021-10-21)
DX: R42 Dizziness and giddiness (principal); I24.9 Acute ischemic heart disease, unspecified
CPT/HCPCS: 36415; 71045-TC-FY; 80053; 83735; 84484; 85025; 93005; 93010; 99284-25; C9803-CS; U0003; U0005